=== PATIENT | female | born 1940 | race Caucasian/White ===

== ENCOUNTER 2018-01-30 19:20 | Inpatient (IN) | payer MEDICARE, OTHER ==
[2018-01-30] MEDS ORDERED: SODIUM CHLORIDE 0.9% 1,000 ML IV SCH (20:00)
--- NOTE | 2018-01-30 20:02 | ED ---
General Adult HPI - General Chief complaint: Urogenital Stated complaint: weakness Time Seen by Provider: 01/30/18 19:26 Source: patient, family, EMS, RN notes reviewed, old records reviewed Mode of arrival: EMS Limitations: no limitations - History of Present Illness Initial comments: 78-year-old female presenting as transfer from outside hospital. Patient was evaluated for generalized weakness. She has history of chronic kidney disease. She was transferred for nephrology evaluation. She was found to have UTI, patient has history of recurrent UTIs and is complaining of dysuria. No fever or chills. No chest pain at the time my evaluation. No cough or fever. Patient had left upper extremity graft placed about 3 years ago however this is nonfunctioning and was never used. Patient has never received hemodialysis. Denies abdominal pain nausea vomiting. - Related Data Home Medications Medication Instructions Recorded Confirmed Cholecalciferol [Vitamin D3] 5,000 unit PO DAILY@1200 08/14/14 08/14/14 Clopidogrel [Plavix] 75 mg PO DAILY 08/14/14 08/14/14 Insulin Aspart [NovoLOG 0 unit SQ [facility] 08/14/14 08/14/14 (formulary)] Insulin Detemir [Levemir Flextouch] 16 units SQ HS 08/14/14 08/14/14 Isosorbide Mononitrate ER [Imdur] 30 mg PO DAILY 08/14/14 08/14/14 Pravastatin Sodium [Pravachol] 40 mg PO HS 08/14/14 08/14/14 Previous Rx's Medication Instructions Recorded ALPRAZolam [Xanax] 0.25 mg PO TID #30 tab 08/21/14 Aspirin 81 mg PO DAILY #1 chewable 08/21/14 Carvedilol [Coreg] 6.25 mg PO AC-BID #1 tab 08/21/14 Omeprazole [PriLOSEC] 20 mg PO BID #1 capsule. 08/21/14 amLODIPine [Norvasc] 10 mg PO DAILY #1 tab 08/21/14 Allergies Allergy/AdvReac Type Severity Reaction Status Date / Time Penicillins Allergy Severe Swelling Verified 01/30/18 19:27 Sulfa (Sulfonamide Allergy Severe Swelling Verified 01/30/18 19:27 Antibiotics) diphenhydramine HCl Allergy Itching & Verified 01/30/18 19:27 [From Benadryl] Swelling lisinopril Allergy Itching Verified 01/30/18 19:27 Review of Systems ROS Statement: Those systems with pertinent positive or pertinent negative responses have been documented in the HPI. ROS Other: All systems not noted in ROS Statement are negative. Past Medical History Past Medical History: Coronary Artery Disease (CAD), Diabetes Mellitus, Hearing Disorder / Deafness, Hyperlipidemia, Hypertension, Osteoarthritis (OA) History of Any Multi-Drug Resistant Organisms: None Reported Past Surgical History: Back Surgery, Bowel Resection, Cholecystectomy, Heart Catheterization With Stent, Hysterectomy Past Anesthesia/Blood Transfusion Reactions: No Reported Reaction Date of Last Stent Placement:: 2012 Past Psychological History: Anxiety Smoking Status: Never smoker Past Alcohol Use History: None Reported Past Drug Use History: None Reported - Past Family History Mother Family Medical History: CVA/TIA Additional Family Medical History / Comment(s): mom had hx of htn and from stroke General Exam Limitations: no limitations General appearance: alert, in no apparent distress Head exam: Present: atraumatic, normocephalic Eye exam: Present: normal appearance, PERRL, other (Right eye ptosis) ENT exam: Present: normal exam Neck exam: Present: normal inspection. Absent: tenderness, meningismus Respiratory exam: Present: normal lung sounds bilaterally. Absent: respiratory distress, wheezes, rales Cardiovascular Exam: Present: regular rate, normal rhythm GI/Abdominal exam: Present: soft. Absent: distended, tenderness Extremities exam: Present: normal inspection. Absent: pedal edema, calf tenderness Back exam: Present: normal inspection, full ROM Neurological exam: Present: alert, oriented X3, CN II-XII intact. Absent: motor sensory deficit Psychiatric exam: Present: normal affect, normal mood Skin exam: Present: warm, dry, intact. Absent: cyanosis, diaphoretic Course Vital Signs 01/30/18 19:24 Temperature 98.7 F Pulse Rate 92 Respiratory 20 Rate Blood Pressure 179/77 O2 Sat by Pulse 96 Oximetry EKG Findings - EKG Comments: EKG Findings:: EKG: Normal sinus rhythm, left axis deviation, LVH no ST segment elevation, rate of 86, ME interval 206, QRS duration 108, QTC 473 Medical Decision Making - Medical Decision Making 78 yo female with generalized weakness, worsening kidney function and UTI. Patient transferred for further evaluation and treatment of along with nephrology consultation. Laboratory studies reviewed, patient had normal white blood cell count 7.6, hemoglobin 8.7 which appear stable for this patient. Sodium 137, potassium 4.2. BUN is 106 creatinine 4.9. Troponin and lactic acid are negative. Urinalysis did show signs consistent with UTI. Patient received ceftriaxone prior to transfer, she will be continued on this medication. Chest x-ray shows cardiomegaly with no significant pulmonary edema. Repeat laboratory studies will be obtained in the morning. Case discussed with Dr. Albarran, he will accept admission. Nephrology placed on consult. Disposition Clinical Impression: Chronic kidney disease, UTI (urinary tract infection) Disposition: ADMITTED IP TO THIS HOSP Condition: Stable Is patient prescribed a controlled substance at d/c from ED?: No Referrals: Jameson Winchester MD [Primary Care Provider] - 1-2 days Time of Disposition: 20:04 Decision to Admit Reason: Admit from EC Decision Date: 01/30/18 Decision Time: 20:05
[2018-01-30] MEDS: cefTRIAXone IN SWFI 1,000 MG/10 ML SYRINGE IVP SCH (20:20)
[2018-01-30] MEDS ORDERED: NALOXONE 0.4 MG/ML 1 ML VIAL IV PRN (20:50)
[2018-01-30] MEDS ORDERED: INSULIN ASPART 100 UNIT/ML 1 ML 10 ML VIAL SQ SCH (21:00)
[2018-01-30 22:28] LABS: Glucose,Whole Blood 204 mg/dL (75-99)
[2018-01-30] MEDS: SODIUM BICARBONATE TAB 650 MG TAB PO SCH (22:41)
[2018-01-30] MEDS: amLODIPine 10 MG TAB PO SCH (22:42)
[2018-01-30] MEDS: ALPRAZolam 0.5 MG TAB PO SCH (22:42)
[2018-01-30] MEDS: PRAVASTATIN SODIUM 40 MG TAB PO SCH (22:43)
[2018-01-30] MEDS: hydrALAZINE HCL 50 MG TAB PO SCH (22:43)
[2018-01-30] MEDS: DARBEPOETIN ALFA 100MCG/0.5ML SYRINGE SQ SCH (23:16)
[2018-01-31 07:51] LABS: Glucose,Whole Blood 136 mg/dL (75-99)
[2018-01-31] MEDS: INSULIN ASPART 100 UNIT/ML 1 ML 10 ML VIAL SQ SCH ×4 (07:52→22:08)
[2018-01-31] MEDS: CALCIUM ACETATE 667 MG CAP PO SCH ×3 (07:52→17:24)
[2018-01-31] MEDS: PANTOPRAZOLE 40 MG TABLET PO SCH (07:53)
[2018-01-31] MEDS: ALPRAZolam 0.5 MG TAB PO SCH ×2 (07:53→22:08)
[2018-01-31] MEDS: amLODIPine 10 MG TAB PO SCH ×2 (07:53→22:06)
[2018-01-31] MEDS: hydrALAZINE HCL 50 MG TAB PO SCH ×3 (07:53→22:06)
[2018-01-31] MEDS: MAGNESIUM OXIDE 400 MG TAB PO SCH (07:54)
[2018-01-31] MEDS: NON-FORMULARY DRUG (Linaclotide [Linzess] 145 MCG) PO SCH (07:55)
[2018-01-31] MEDS: SODIUM BICARBONATE TAB 650 MG TAB PO SCH ×2 (07:55→22:06)
[2018-01-31 09:05] LABS: Anisocytosis Moderate; Basophils % (A) 1 %; Eosinophils # (A) 0.2 k/uL (0-0.7); Eosinophils % (A) 3 %; HCT 27.4 % (34.0-46.0); HGB 8.1 gm/dL (11.4-16.0); Hypochromasia Marked; Lymphocytes # (A) 0.7 k/uL (1.0-4.8); Lymphocytes % (A) 14 %; MCH 26.3 pg (25.0-35.0); MCHC 29.5 g/dL (31.0-37.0); MCV 89.4 fL (80.0-100.0); Monocytes # (A) 0.4 k/uL (0-1.0); Monocytes % (A) 9 %; Neutrophils # (A) 3.4 k/uL (1.3-7.7); Neutrophils % (A) 72 %; Platelet Count 259 k/uL (150-450); Poikilocytosis Slight; RBC 3.06 m/uL (3.80-5.40); RDW 21.4 % (11.5-15.5); WBC 4.8 k/uL (3.8-10.6)
[2018-01-31 09:32] LABS: Albumin 3.1 g/dL (3.5-5.0); Calcium 8.3 mg/dL (8.4-10.2); Phosphorus 5.7 mg/dL (2.5-4.5); Potassium 4.1 mmol/L (3.5-5.1); Total Bilirubin 0.4 mg/dL (0.2-1.3); Total Protein 6.1 g/dL (6.3-8.2)
[2018-01-31] MEDS: METOLAZONE 5 MG TAB PO SCH (10:15)
[2018-01-31] MEDS: ISOSORBIDE MONONITRATE ER 60 MG TAB.ER.24H PO SCH (10:15)
[2018-01-31] MEDS: METOPROLOL SUCCINATE (ER) 25 MG TAB.ER.24H PO SCH (10:15)
[2018-01-31] MEDS: ASPIRIN 81 MG PO SCH (10:16)
[2018-01-31 12:05] LABS: Glucose,Whole Blood 153 mg/dL (75-99)
--- NOTE | 2018-01-31 12:16 | CONS ---
CONSULTATION REASON FOR CONSULT: Renal failure. HISTORY OF PRESENT ILLNESS: Patient is a 78-year-old female with history of sepsis, diabetes, chronic kidney disease, NKF stage IV-V, who was being followed by home demonstration agent in [place]; however, patient was going to switch nephrology to our service and was scheduled to see us in the office today. She ended up at [facility] and was then transferred to [facility]. Patient presented to the hospital with increased weakness. She has underlying history of recurrent urinary tract infection. She was found to have a UTI and is currently maintained on antibiotics. Her creatinine was above 5 at [facility]. It is now down to 4.8. I did review her previous labs that were sent to our office and it looks like her creatinine in September of 2017 has been about 3.5-4. Her baseline creatinine has been about 3.5-4. We have a creatinine of 4.7 during her office visit in earlier part of November. Patient does have an AV graft; however, this is clotted and she does not have a functioning access. It appears that the patient has been talked to regarding renal replacement therapy and she had been reluctant. She has had nephrotic range proteinuria upon review of her records. PAST MEDICAL HISTORY: CKD stage V, type 2 diabetes, coronary artery disease, recurrent urinary tract infection, history of nephrolithiasis and urological intervention previously, history of left hydronephrosis previously, history of GI bleed, CHF, ejection fraction not known at this time, CKD mineral bone disorder. PAST SURGICAL HISTORY: Coronary stent placement, AV graft placement left arm which is now clotted, history of back surgery, bowel resection, cholecystectomy, hysterectomy. SOCIAL HISTORY: Negative for smoking, drug abuse or alcohol abuse. MEDICATIONS: Medications at home prior to admission included vitamin D3, Plavix, insulin, Imdur, Pravachol, Xanax, aspirin, Coreg, Prilosec, Norvasc. ALLERGIES: Include PENICILLIN, which causes severe swelling, SULFA causes swelling, BENADRYL causes itching and swelling, LISINOPRIL causes itching. REVIEW OF SYSTEMS: As per HPI. All others negative. Patient denies any nausea, vomiting or diarrhea. She did admit to decreased oral intake. She admitted for increased weakness. No history of chest pain, shortness of breath, fever of cough. PHYSICAL EXAMINATION: Patient is currently comfortable, awake, alert, oriented x3. She is not in any acute distress. Blood pressure is 117/40, heart rate 60 per minute, she is afebrile. Examination of the heart, S1, S2. Examination of the lungs, bilateral breath sounds are heard. Abdomen is soft, nontender. Exam of the lower extremities shows no evidence of edema. [employer] exam is grossly intact. LABS: Show sodium 140, potassium 4.1, serum creatinine of 4.8, BUN 96, hemoglobin 8.1 g/dL, phosphorus was 5.7. ASSESSMENT: 1. Chronic kidney disease stage V with baseline creatinine about 4-4.5 mg/dL. Patient does have an access in her left arm, but it is clotted. She will need further vascular evaluation. Apparently patient has been talked to about starting renal replacement therapy, but she had been reluctant. I have just met her today and I will continue with the IV fluids for now. Patient has no gross uremic symptoms for urgent initiation of dialysis at this time. We will continue to evaluate her renal function during this admission. 2. Anemia of chronic disease, rule out iron-deficiency. 3. 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 Patient was on PhosLo at home which we will continue. 4. Congestive heart failure, ejection fraction not known. 5. Hypertension. Blood pressure was high, currently it is on the lower side. Will continue to monitor for now and possibly decrease medications if needed. 6. Metabolic acidosis. Maintained on sodium bicarb. 7. Type 2 diabetes. PLAN: Resume phosphate binders. Continue current antihypertensive medications. Check iron studies. Continue with Aranesp as well. Continue IV fluids and repeat labs in a.m. I will also check an ultrasound of the kidneys. The UA was positive for urinary tract infection. Will follow up on the urine culture. No need for urgent initiation of dialysis based on evaluation today, we will re-evaluate tomorrow. Thank you for this consultation. Will continue to follow the patient during her hospital stay. MMODL / IJN: [id number] /
--- NOTE | 2018-01-31 15:12 | US ---
EXAMINATION TYPE: US kidneys/renal and bladder DATE OF EXAM: 01/31/2018 COMPARISON: US 08/16/2014, CT 08/18/2014 CLINICAL HISTORY: kidney disease, elevated BUN/creat. EXAM MEASUREMENTS: Right Kidney: 10.4 x 5.5 x 4.2 cm Left Kidney: 11.7 x 5.6 x 5.6 cm Post Void Residual Volume: Patient incontinent of urine mL Right Kidney: No hydronephrosis or masses seen Left Kidney: No hydronephrosis or masses seen Bladder: wnl, not distended.Patient incontinent of urine Bilateral Jets seen: Yes Normal Post Void Residual: Unable to do. There is no evidence for hydronephrosis at this point in time. No nephrolithiasis is seen. No chel s are identified. The urinary bladder is anechoic. Bilateral ureteral jets are seen. Cortical medullary differentiation is maintained. No evident ascites. IMPRESSION: Renal sizes as described.
[2018-01-31 16:08] LABS: Iron Saturation 21.69 (12.00-45.00)
[2018-01-31 16:50] LABS: Glucose,Whole Blood 205 mg/dL (75-99)
[2018-01-31 17:16] LABS: Hemoglobin A1C 5.4 % (4.0-6.0)
[2018-01-31] MEDS: SODIUM CHLORIDE 0.9% 1,000 ML IV SCH (17:24)
[2018-01-31] MEDS ORDERED: MAGNESIUM HYDROXIDE 2,400 MG/10 ML CUP PO PRN (20:31)
[2018-01-31] MEDS ORDERED: ONDANSETRON 4 MG/2 ML VIAL IVP PRN (20:31)
[2018-01-31] MEDS ORDERED: LACTULOSE 20 GM/30 ML CUP PO PRN (20:31)
--- NOTE | 2018-01-31 21:07 | HP ---
HISTORY AND PHYSICAL DATE OF ADMISSION: 01/30/2018 DATE OF SERVICE: 01/31/2018 PRESENTING COMPLAINT: Weak, tired. HISTORY OF PRESENTING COMPLAINT: This is a very pleasant 78-year-old patient who follows with Dr. Winchester. Chronic stable medical conditions include coronary artery disease with stent, diabetes mellitus, type 2, hard of hearing, hyperlipidemia, hypertension, osteoarthritis and chronic kidney disease. Patient's creatinine normally runs around 3.5 to 4. The patient was following with a accelerator operator up in [place], was now due to see the local nephrology group here. Patient presented to [facility] feeling weak, tired and rundown and was found to have a creatinine that had increased. The patient was also having for the last 2 days increasing pelvic discomfort and urinary frequency and dysuria, tired, rundown. Patient was transferred here. The patient was started on IV fluids and IV antibiotics in the form of ceftriaxone. Patient's two sons are present at the bedside. No nausea or vomiting. Patient's appetite is okay. Patient does have an access that seems to have clotted off. REVIEW OF SYSTEMS: CONSTITUTIONAL: Tired. HEENT: Decreased hearing. RESPIRATORY: None. CARDIOVASCULAR: None. GASTROINTESTINAL: None. GENITOURINARY: As above. MUSCULOSKELETAL: Arthritic pain in joints. DERMATOLOGICAL: None. HEMATOLOGICAL: None. LYMPHATICS: None. PSYCHIATRY: Slightly forgetful. NEUROLOGICAL: Uses a walker. PAST MEDICAL HISTORY: 1. Coronary artery disease with stent. 2. Diabetes mellitus, type 2. 3. Hard of hearing. 4. Hyperlipidemia. 5. Hypertension. 6. Chronic kidney disease. Creatinine 3.5 to 4 at baseline. PAST SURGICAL HISTORY: 1. Back surgery. 2. Bowel resection. 3. Cholecystectomy. 4. Cardiac cath with stent. 5. Hysterectomy. 6. Left arm dialysis access 2017 that apparently has clotted off. SOCIAL HISTORY: No smoking. No alcohol. Lives with her son Emir. Uses a walker. FAMILY HISTORY: Mother of a stroke. HOME MEDICATIONS: 1. Sodium bicarb 650 mg b.i.d. 2. Hydralazine 50 mg p.o. t.i.d. 3. Norvasc 10 mg p.o. b.i.d. 4. Pravachol 40 mg at bedtime. 5. Potassium 20 mEq p.o. b.i.d. 6. Protonix 40 mg p.o. daily. 7. Lopressor 50 mg p.o. t.i.d. 8. Toprol XL 25 mg p.o. daily. 9. Zaroxolyn 5 mg p.o. daily. 10.Linzess 145 mcg p.o. daily. 11.Imdur ER 60 mg p.o. daily. 12.NovoLog before meals t.i.d. 13.Aranesp 100 mcg q.7 days. 14.PhosLo 2 tablets p.o. t.i.d. 15.Bumex 4 mg p.o. b.i.d. 16.Aspirin 81 mg p.o. daily. 17.Xanax 0.5 p.o. q.i.d. 18.Magnesium 500 mg p.o. daily. ALLERGIES: 1. PENICILLIN. 2. SULFA. 3. BENADRYL. 4. LISINOPRIL. PHYSICAL EXAMINATION: Temperature 98.7, pulse 92, respiration 20, blood pressure 179/77, pulse ox 96% on room air, present on admission. GENERAL APPEARANCE: Average build. Lying in bed, tired-appearing. EYES: Pupils equal. Conjunctivae pale. HEENT: External appearance of nose and ears normal. Oral cavity normal. NECK: JVD not raised. Mass not palpable. RESPIRATORY: Effort normal. LUNGS: Fair air entry. CARDIOVASCULAR: First and second sounds normal. No edema. ABDOMEN: Soft, non-tender. Liver and spleen not palpable. LYMPHATICS: No lymph node palpable in neck, axillae or groin. PSYCHIATRY: Alert and oriented x3. Mood and affect normal. MUSCULOSKELETAL: Evidence of osteoarthritis, especially in the hands and knees. INVESTIGATIONS: White count 4.8, hemoglobin 8.1, platelets 259, potassium 4.1, BUN 96, creatinine 4.87, phosphorus 5.7, albumin 3.1. Patient's lab work from the other hospital did show UA to be positive. ASSESSMENT: 1. Acute renal failure on chronic kidney disease. Normally baseline creatinine was running at 3.5 to 4, which is chronic kidney disease, stage V. Patient does not need emergent hemodialysis. Nephrology was consulted. IV fluids have been started for the same. 2. Metabolic acidosis from renal failure. Patient's bicarb is 19. 3. Normocytic anemia, likely from underlying chronic kidney disease. 4. Possibly mineral bone disease secondary to chronic kidney disease. Phosphorus is 5.7. 5. Hypoalbuminemia, likely from chronic kidney disease. 6. Chronic hard of hearing. 7. Coronary artery disease with prior history of stent. 8. Hyperlipidemia. 9. Essential hypertension. 10.Primary osteoarthritis. PLAN: The patient has been put on IV fluids, IV ceftriaxone. UA culture is pending. Home medications are resumed. Nephrology was consulted. We will also consult Vascular Surgery to look at the patient's access that will be required in the near future. MMODL / IJN: [id number] /
[2018-01-31 21:10] LABS: Glucose,Whole Blood 127 mg/dL (75-99)
[2018-01-31] MEDS: cefTRIAXone IN SWFI 1,000 MG/10 ML SYRINGE IVP SCH (22:05)
[2018-01-31] MEDS: PRAVASTATIN SODIUM 40 MG TAB PO SCH (22:06)
[2018-02-01 06:37] LABS: Appearance,Urine Turbid (Clear); Bacteria,Urine Rare /hpf; Bilirubin,Urine Negative (Negative); Blood,Urine Moderate (Negative); Color,Urine Yellow; Glucose,Urine (UA) 2+ (Negative); Ketones,Urine Negative (Negative); Leukocyte Esterase,Urine Large (Negative); Nitrite,Urine Negative (Negative); Protein,Urine 3+ (Negative); RBC,Urine 34 /hpf (0-5); Specific Gravity,Urine 1.014 (1.001-1.035); Squamous Epithelial Cell,Urine 8 /hpf (0-4); Urobilinogen,Urine <2.0 mg/dL (<2.0); WBC,Urine >182 /hpf (0-5)
[2018-02-01] MEDS: SODIUM CHLORIDE 0.9% 1,000 ML IV SCH ×2 (06:48→16:56)
[2018-02-01 07:19] LABS: Glucose,Whole Blood 164 mg/dL (75-99)
[2018-02-01] MEDS: METOLAZONE 5 MG TAB PO SCH (07:36)
[2018-02-01] MEDS: NON-FORMULARY DRUG (Linaclotide [Linzess] 145 MCG) PO SCH (07:36)
[2018-02-01] MEDS: CALCIUM ACETATE 667 MG CAP PO SCH ×3 (07:36→17:43)
[2018-02-01] MEDS: MAGNESIUM OXIDE 400 MG TAB PO SCH (07:36)
[2018-02-01] MEDS: INSULIN ASPART 100 UNIT/ML 1 ML 10 ML VIAL SQ SCH ×4 (07:37→22:19)
[2018-02-01] MEDS: hydrALAZINE HCL 50 MG TAB PO SCH ×3 (07:37→22:19)
[2018-02-01] MEDS: ISOSORBIDE MONONITRATE ER 60 MG TAB.ER.24H PO SCH (07:37)
[2018-02-01] MEDS: ALPRAZolam 0.5 MG TAB PO SCH ×2 (07:37→20:06)
[2018-02-01] MEDS: amLODIPine 10 MG TAB PO SCH ×2 (07:37→20:06)
[2018-02-01] MEDS: ASPIRIN 81 MG PO SCH (07:37)
[2018-02-01] MEDS: METOPROLOL SUCCINATE (ER) 25 MG TAB.ER.24H PO SCH (07:37)
[2018-02-01] MEDS: SODIUM BICARBONATE TAB 650 MG TAB PO SCH ×2 (07:37→20:06)
[2018-02-01] MEDS: PANTOPRAZOLE 40 MG TABLET PO SCH (07:37)
--- NOTE | 2018-02-01 07:39 | XR ---
EXAMINATION TYPE: XR chest 1V DATE OF EXAM: 02/01/2018 COMPARISON: Prior chest x-ray 08/20/2014 and prior chest x-ray 01/30/2018 HISTORY: Congestive heart failure TECHNIQUE: Single frontal view of the chest is obtained. FINDINGS: Heart is enlarged. No evident pneumothorax or pleural effusion. There is improvement in th e interstitium. Patchy basilar density persists. Central vascularity mildly prominent as on prior. IMPRESSION: Improvement in patient's volume status, aeration compared to prior exam of July 2014. Persistent cardiomegaly. Follow-up PA and lateral chest x-ray suggested.
--- NOTE | 2018-02-01 10:17 | CONS ---
CONSULTATION This is a 78-year-old, pleasant female. She has been admitted to [facility] with history of patient has discomfort of pain in pelvic area and history of frequency and dysuria. She feels very tired. The patient was seen by Nephrology. BUN creatinine is 3.5 to 4. The patient had a left upper arm [place]-Kavon graft placed in the past which has been occluded. The patient was seen by Nephrology. I was consulted. Patient needs a dialysis catheter or a fistula. PAST HISTORY: Past history includes: 1. Coronary artery disease. 2. Diabetes. 3. Hyperlipidemia. 4. Hypertension. 5. Chronic kidney disease. SURGICAL HISTORY: Patient had back surgery, bowel resection, cholecystectomy, left arm AV dialysis graft placed which has been occluded. SOCIAL HISTORY: Nonsmoker. PHYSICAL EXAMINATION: On examination, patient was seen in her room. Her vitals are stable. NECK: Supple. Trachea central. CHEST: Clear on auscultation. ABDOMEN: Soft. The patient has left upper arm [place]-Kavon graft, which has been occluded. The femoral pulses are present. PLAN: The patient has history of chronic failure, not on dialysis. If the patient needs any surgical intervention for catheter placement or fistula creation, we will arrange. MMODL / IJN: [id number] /
[2018-02-01 10:58] LABS: Albumin 2.9 g/dL (3.5-5.0); Calcium 8.2 mg/dL (8.4-10.2); Potassium 4.6 mmol/L (3.5-5.1); Total Bilirubin 0.3 mg/dL (0.2-1.3); Total Protein 5.9 g/dL (6.3-8.2)
[2018-02-01 12:50] LABS: Glucose,Whole Blood 183 mg/dL (75-99)
[2018-02-01] MEDS: ACETAMINOPHEN TAB 325 MG TAB PO PRN (14:13)
--- NOTE | 2018-02-01 14:35 | PN ---
PROGRESS NOTE Patient is seen for followup for chronic kidney disease. She is currently maintained on IV fluids. Renal function has not improved much. Serum creatinine is still at 4.89. Patient's BUN remains significantly elevated. Her albumin is as low as 2.9. She should be started on dialysis. I did review her previous labs as outpatient and her creatinine has been about 4.5 for the past 6 months or so. Currently, patient is being treated for UTI. She is complaining of significant burning and discomfort. Appetite is fair. No chest pains or shortness of breath. PHYSICAL EXAMINATION: Blood pressure was 177/67, heart rate 66 per minute. Patient is afebrile. Examination of the heart S1, S2. Examination of the lungs bilateral breath sounds are heard. Abdomen is soft, nontender. Examination of lower extremities shows no evidence of edema. CLINIC CLERK exam is grossly intact. LABS: Show sodium of 138, potassium 4.6, BUN 92, serum creatinine 4.89. Urine culture is currently pending. ASSESSMENT AND PLAN: 1. Chronic kidney disease NKF stage 5 with significantly elevated BUN and creatinine and hypoalbuminemia. It is recommended for the patient to start dialysis. I have discussed with her different options including PD. She will be starting at the [facility] unit. I have advised her that we will need to start with dialysis this admission and patient is currently agreeable. 2. Metabolic acidosis, non gap secondary to renal failure, maintained on sodium bicarb. 3. Urinary tract infection. Urine culture is pending. Patient is maintained on antibiotics. 4. Anemia of chronic disease. No active bleeding noted at this time. PLAN: Continue with Aranesp. Continue empiric antibiotics. Follow up on urine cultures. Continue current antihypertensive regimen and proceed with vascular is surgery consult and dialysis catheter placement. I will continue with the IV fluids and I will also increase his sodium bicarb to 650 mg b.i.d. MMODL / IJN: [id number] /
[2018-02-01 17:23] LABS: Glucose,Whole Blood 212 mg/dL (75-99)
[2018-02-01] MEDS: cefTRIAXone IN SWFI 1,000 MG/10 ML SYRINGE IVP SCH (20:06)
[2018-02-01] MEDS: PRAVASTATIN SODIUM 40 MG TAB PO SCH (20:06)
[2018-02-01 20:47] LABS: Glucose,Whole Blood 155 mg/dL (75-99)
[2018-02-01] MEDS ORDERED: FLUCONAZOLE 150 MG TAB PO STA (22:57)
[2018-02-02] MEDS: PHENAZOPYRIDINE 100 MG TAB PO SCH ×4 (00:59→21:32)
[2018-02-02] MEDS: ACETAMINOPHEN TAB 325 MG TAB PO PRN ×2 (01:03→14:57)
--- NOTE | 2018-02-02 05:29 | PN ---
PROGRESS NOTE DATE OF SERVICE: 02/01/2018 PRESENTING COMPLAINT: Tired, dysuria. INTERVAL HISTORY: The patient presented with worsening renal functions. Complaining of significant dysuria. The aide informed me there is some redness from the vaginal area and patient is getting topical antifungals. REVIEW OF SYSTEMS: Review of systems done for constitutional, cardiovascular, GI, pulmonary; relevant findings as above. CURRENT MEDICATIONS: Current medications are reviewed that include IV ceftriaxone. PHYSICAL EXAMINATION: On examination, temperature 98.8, pulse 62, respiratory 18, blood pressure 169/66, pulse ox 92% on room air. GENERAL APPEARANCE: Lying in bed, awake. EYES: Pupils equal. Conjunctivae normal. HENT: External appearance of nose and ears normal. Oral cavity normal. NECK: JVD not raised. Mass not palpable. RESPIRATORY: Effort . LUNGS: Fair air entry. CARDIOVASCULAR: First and second sounds normal. No edema. ABDOMEN: Soft, nontender. Liver and spleen not palpable. Some suprapubic tenderness. PSYCHIATRY: Alert and oriented x3. Mood and affect normal. EXTREMITIES: Left upper extremity occluded [place]-Kavon graft. INVESTIGATIONS: Bicarb 16, BUN 92, creatinine 4.89. ASSESSMENT: 1. Acute renal failure on chronic kidney disease worsening extending. 2. Baseline chronic kidney disease with a creatinine of 3.5 to 4. 3. Severe metabolic acidosis from renal failure. 4. Normocytic anemia from underlying chronic kidney disease. 5. Mineral bone disease secondary to Chronic kidney disease. 6. Hypoalbuminemia likely from chronic kidney disease. 7. Chronic hard of hearing. 8. Coronary artery disease, prior history of stent. 9. Hyperlipidemia. 10.Essential hypertension. 11.Primary osteoarthritis. 12.Severe dysuria secondary to urinary tract infection, vaginal infection is still probable. PLAN: Will give patient p.o. Diflucan 150 mg. I will also add Pyridium for a short course. The patient's [place]-Kavon graft in the left arm is occluded. The patient may require hemodialysis in the near future. Will let Dr. Galeas address this with the patient. MMAYANNAL / IJN: [id number] /
[2018-02-02] MEDS: SODIUM CHLORIDE 0.9% 1,000 ML IV SCH ×2 (05:45→19:46)
[2018-02-02 07:34] LABS: Glucose,Whole Blood 125 mg/dL (75-99)
[2018-02-02] MEDS: INSULIN ASPART 100 UNIT/ML 1 ML 10 ML VIAL SQ SCH ×4 (08:00→21:31)
[2018-02-02] MEDS: hydrALAZINE HCL 50 MG TAB PO SCH ×3 (08:02→21:32)
[2018-02-02] MEDS: ISOSORBIDE MONONITRATE ER 60 MG TAB.ER.24H PO SCH (08:02)
[2018-02-02] MEDS: MAGNESIUM OXIDE 400 MG TAB PO SCH (08:02)
[2018-02-02] MEDS: METOPROLOL SUCCINATE (ER) 25 MG TAB.ER.24H PO SCH (08:02)
[2018-02-02] MEDS: ALPRAZolam 0.5 MG TAB PO SCH ×2 (08:03→21:31)
[2018-02-02] MEDS: PANTOPRAZOLE 40 MG TABLET PO SCH (08:03)
[2018-02-02] MEDS: METOLAZONE 5 MG TAB PO SCH (08:03)
[2018-02-02] MEDS: SODIUM BICARBONATE TAB 650 MG TAB PO SCH ×2 (08:03→21:32)
[2018-02-02] MEDS: NON-FORMULARY DRUG (Linaclotide [Linzess] 145 MCG) PO SCH (08:03)
[2018-02-02] MEDS: ASPIRIN 81 MG PO SCH (08:03)
[2018-02-02] MEDS: CALCIUM ACETATE 667 MG CAP PO SCH ×3 (08:03→17:39)
[2018-02-02] MEDS: amLODIPine 10 MG TAB PO SCH ×2 (08:03→21:31)
[2018-02-02 09:38] LABS: Calcium 8.4 mg/dL (8.4-10.2); Potassium 4.3 mmol/L (3.5-5.1)
[2018-02-02 11:39] LABS: Glucose,Whole Blood 206 mg/dL (75-99)
[2018-02-02 11:47] LABS: INR 1.1 (<1.2); Prothrombin Time 10.3 sec (9.0-12.0)
[2018-02-02] MEDS ORDERED: LIDOCAINE 1% INJ 10MG/ML (20 ML MDV) ONE (15:27)
[2018-02-02] MEDS ORDERED: IV FLUID CONTINUATION 1,000 ML IV ONE (15:47)
[2018-02-02] MEDS ORDERED: CLINDAMYCIN 600 MG in DEXTROSE 5% IN WATER 50 ML IVPB STA ×2 (15:52)
[2018-02-02] MEDS ORDERED: LIDOCAINE 1% INJ 10MG/ML (20 ML MDV) SQ ONE ×2 (15:56)
[2018-02-02] MEDS ORDERED: HEPARIN SODIUM 1,000 UN/ML (10ML VL) ONE (16:09)
--- NOTE | 2018-02-02 16:56 | IR ---
Fluoroscopy HISTORY: Central venous catheter placement 0.7 minutes fluoroscopy time supplied to the referring clinician. 75 intraoperative C-arm images doc ument the procedure. See dictated report from vascular surgery.
--- NOTE | 2018-02-02 16:57 | PCN ---
PROCEDURE NOTE PREOP DIAGNOSIS: Acute on chronic renal failure. PROCEDURE PERFORMED: Ultrasound-guided 23 cm dialysis catheter placed right internal jugular approach. DESCRIPTION OF PROCEDURE: The patient was brought to the shellfish processing laborer. Right side of the neck and chest was prepped and draped in usual sterile manner. 1% lidocaine was infiltrated into the chest and neck area. Ultrasound-guided micropuncture into the right jugular vein. Micropuncture guidewire was passed and 4 Arabic dilator on the top of the guidewire. After that, we passed a regular guidewire which was parked in the inferior vena cava under fluoroscopy control. Then a tunnel was created. Through the tunnel, we brought 23 cm dialysis catheter. Dilator was advanced on the top of the guidewire. Sheath was run, advanced on top of the guidewire. Through the sheath, we introduced the dialysis catheter. Tip of the catheter in the superior vena cava and atrial junction. Flushed with heparin saline and hep-locked and secured with 3-0 nylon. Dressing applied. Patient tolerated the procedure well. MMODL / IJN: [id number] /
--- NOTE | 2018-02-02 16:57 | XR ---
EXAMINATION TYPE: XR chest 1V portable DATE OF EXAM: 02/02/2018 COMPARISON: Prior chest 02/01/2018 HISTORY: Dialysis catheter insertion TECHNIQUE: Single frontal view of the chest is obtained. FINDINGS: Right jugular central venous catheter is placed in the interval, distal tip is in the righ t atrium. There is no evident pneumothorax or pleural effusion. No other significant interval change. IMPRESSION: No evident complication status post central venous catheter placement.
[2018-02-02 17:34] LABS: Glucose,Whole Blood 151 mg/dL (75-99)
--- NOTE | 2018-02-02 19:12 | PN ---
PROGRESS NOTE The patient is seen for followup for chronic kidney disease. I have discussed renal replacement therapy with the patient and she is agreeable to start dialysis. Her creatinine remains elevated. She is maintained on IV fluids. This morning, one of her sons is present at bedside. I have discussed with them and they are agreeable to catheter placement and initiation of dialysis. The patient is still complaining of significant itching and burning in the perineal area. EXAMINATION: Today blood pressure is 132/62, heart rate 58 per minute. She is afebrile. HEART: S1, S2. LUNGS: Bilateral breath sounds are heard. Abdomen is soft, nontender. Lower extremities show trace edema bilaterally. 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 Patient is moving all 4 extremities. LABS SHOW: Serum creatinine of 4.7, sodium 138, potassium 4.3, CO2 is 16. ASSESSMENT: 1. Chronic kidney disease secondary to diabetic nephropathy, [employer] stage 5 with significantly low albumin and significantly elevated BUN. The patient will need to start renal replacement therapy. This was discussed with her. I have also advised her that she can consider switching to peritoneal dialysis down the road. 2. Metabolic acidosis secondary to renal failure, maintained on sodium bicarb. 3. Urinary tract infection. Urine culture showing no evidence of growth. The patient has been on antibiotics. 4. Anemia of chronic disease maintained on Aranesp. 5. Hypertension, currently controlled. 6. Chronic kidney disease mineral bone disorder maintained on PhosLo. PLAN: Decrease IV fluids and proceed with catheter placement and initiation of dialysis this admission. She will need to be placed at the [place] unit. We will plan for 1st treatment of hemodialysis tomorrow. MMODL / IJN: [id number] /
[2018-02-02] MEDS: cefTRIAXone IN SWFI 1,000 MG/10 ML SYRINGE IVP SCH (19:46)
[2018-02-02 20:38] LABS: Glucose,Whole Blood 212 mg/dL (75-99)
--- NOTE | 2018-02-02 21:12 | PN ---
PROGRESS NOTE DATE OF SERVICE: 02/02/18 PRESENTING COMPLAINT: Tired. INTERVAL HISTORY: Patient presented with worsening renal function, UTI, dysuria. Pyridium was placed yesterday. The patient's two sons are present. Patient is due for a dialysis catheter placement this afternoon. Will have her first dialysis tomorrow. REVIEW OF SYSTEMS: Done for constitutional, cardiovascular, GI, pulmonary; relevant findings as above. CURRENT MEDICATIONS: Reviewed that include IV ceftriaxone. PHYSICAL EXAMINATION: Temperature 101.2, pulse 67, respirations 16, blood pressure 146/70, pulse ox 93% on room air. GENERAL APPEARANCE: Lying in bed, awake. EYES: Pupils equal. Conjunctivae normal. HEENT: External appearance of nose and ears normal. Oral cavity normal. NECK: JVD not raised. Mass not palpable. RESPIRATORY: Effort normal. Lungs, fair entry. CARDIOVASCULAR: First and second sounds, no edema. ABDOMEN: Soft, nontender. Liver and spleen not palpable. PSYCHIATRY: Alert and oriented x3. Mood and affect normal. EXTREMITIES: Left upper extremity occluded Ceresco-Kavon graft. INVESTIGATIONS: BUN 81, creatinine 4.72. ASSESSMENT: 1. Acute renal failure on chronic kidney disease, worsening now. The patient will be requiring hemodialysis. 2. Severe metabolic acidosis from renal failure. 3. Normocytic anemia from underlying chronic kidney disease. 4. 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 5. Hypoalbuminemia from chronic kidney disease. 6. Chronic hard of hearing. 7. Coronary artery disease with prior history of stent. 8. Hyperlipidemia. 9. Essential hypertension. 10.Primary osteoarthritis. 11.Severe dysuria due to urinary tract infection. PLAN: The patient did spike a fever again in spite of Ceftriaxone. We will send off a set of blood cultures. Will get an ID opinion. Care was discussed with the sons at the bedside. Will do blood cultures and repeat a UA and culture. MMODL / IJN: [id number] /
[2018-02-02] MEDS: PRAVASTATIN SODIUM 40 MG TAB PO SCH (21:32)
[2018-02-03] MEDS: ACETAMINOPHEN TAB 325 MG TAB PO PRN ×2 (06:40→18:40)
[2018-02-03 07:02] LABS: Appearance,Urine Turbid (Clear); Bacteria,Urine Occasional /hpf; Bilirubin,Urine Negative (Negative); Blood,Urine Moderate (Negative); Color,Urine Dark Yellow; Glucose,Urine (UA) 2+ (Negative); Ketones,Urine Negative (Negative); Leukocyte Esterase,Urine Large (Negative); Nitrite,Urine Negative (Negative); Protein,Urine 3+ (Negative); RBC,Urine 27 /hpf (0-5); Specific Gravity,Urine 1.015 (1.001-1.035); Urobilinogen,Urine <2.0 mg/dL (<2.0); WBC,Urine >182 /hpf (0-5)
[2018-02-03 07:42] LABS: Glucose,Whole Blood 166 mg/dL (75-99)
[2018-02-03] MEDS: CALCIUM ACETATE 667 MG CAP PO SCH ×3 (07:52→17:36)
[2018-02-03] MEDS: INSULIN ASPART 100 UNIT/ML 1 ML 10 ML VIAL SQ SCH ×4 (07:52→21:19)
[2018-02-03] MEDS: ALPRAZolam 0.5 MG TAB PO SCH ×2 (07:52→21:17)
[2018-02-03] MEDS: PHENAZOPYRIDINE 100 MG TAB PO SCH ×2 (07:52→15:51)
[2018-02-03] MEDS: SODIUM BICARBONATE TAB 650 MG TAB PO SCH ×2 (07:53→21:18)
[2018-02-03] MEDS: ASPIRIN 81 MG PO SCH (07:53)
[2018-02-03] MEDS: PANTOPRAZOLE 40 MG TABLET PO SCH (07:53)
[2018-02-03] MEDS: MAGNESIUM OXIDE 400 MG TAB PO SCH (07:54)
[2018-02-03] MEDS: NON-FORMULARY DRUG (Linaclotide [Linzess] 145 MCG) PO SCH (07:54)
[2018-02-03] MEDS: METOLAZONE 5 MG TAB PO SCH (11:06)
[2018-02-03] MEDS: amLODIPine 10 MG TAB PO SCH ×2 (11:07→21:17)
[2018-02-03] MEDS: hydrALAZINE HCL 50 MG TAB PO SCH ×3 (11:07→21:18)
[2018-02-03] MEDS: ISOSORBIDE MONONITRATE ER 60 MG TAB.ER.24H PO SCH (11:08)
[2018-02-03] MEDS: METOPROLOL SUCCINATE (ER) 25 MG TAB.ER.24H PO SCH (11:09)
[2018-02-03 11:55] LABS: Glucose,Whole Blood 141 mg/dL (75-99)
[2018-02-03 16:59] LABS: Glucose,Whole Blood 146 mg/dL (75-99)
[2018-02-03 17:08] LABS: Hepatitis A Antibody IgM Non-Reactive (Non-Reactive); Hepatitis B Core IgM Non-Reactive (Non-Reactive)
--- NOTE | 2018-02-03 18:22 | PN ---
PROGRESS NOTE Patient is seen for followup for chronic kidney disease, stage V. She had her dialysis catheter placed yesterday. We will dialyze her today as her first treatment. Patient will be dialyzed again tomorrow. She needs to be set up as outpatient at the [facility]. She was admitted with a urinary tract infection and is currently maintained on antibiotics. On examination, blood pressure was elevated at 174/73. Temperature 100 degrees Fahrenheit early this morning. EXAMINATION OF THE HEART: S1, S2. EXAMINATION OF LUNGS: Bilateral breath sounds are heard. Decreased breath sounds at the bases. ABDOMEN: Soft, non-tender. Examination of lower extremities shows trace edema bilaterally. 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 Patient is moving all 4 extremities. Labs are not available from today. ASSESSMENT: 1. Chronic kidney disease, stage V. Patient needs to start dialysis. She had her PermCath placed yesterday. We will dialyze her today and then again tomorrow. She needs to be set up as outpatient at the [facility] on a Tuesday, Tuesday, Tuesday schedule. 2. Urinary tract infection. Patient is still having fevers. She is maintained on antibiotics in the form of Rocephin. Cultures have not grown anything yet. Clinically symptoms are improved. 3. Metabolic acidosis secondary to renal failure, maintained on sodium bicarb. Expect further improvement with initiation of dialysis. 4. Anemia of chronic disease, maintained on Aranesp. 5. Hypertension. It had been better controlled. Blood pressure is elevated currently. We can increase medications if needed. Expect improvement with dialysis as well. Patient is maintained on Lopressor and hydralazine. We can start COLT inhibitors once the dialysis is initiated. PLAN: Hemodialysis today as well as in a.m. Add COLT inhibitors if blood pressure remains elevated. May need ID consult if patient remains febrile. We need outpatient placement at the [facility] on a Tuesday, Tuesday, Tuesday schedule. MMODL / IJN: [id number] /
[2018-02-03] MEDS: HYDROcodone/APAP 5-325MG 1 EACH TAB PO PRN (19:47)
[2018-02-03] MEDS: cefTRIAXone IN SWFI 1,000 MG/10 ML SYRINGE IVP SCH (19:48)
[2018-02-03] MEDS: LACTULOSE 20 GM/30 ML CUP PO SCH (19:49)
[2018-02-03] MEDS: SODIUM CHLORIDE 0.9% 1,000 ML IV SCH (19:52)
[2018-02-03 21:02] LABS: Glucose,Whole Blood 200 mg/dL (75-99)
[2018-02-03] MEDS: PRAVASTATIN SODIUM 40 MG TAB PO SCH (21:18)
--- NOTE | 2018-02-03 21:37 | PN ---
PROGRESS NOTE DATE OF SERVICE: 02/03/2018 PRESENTING COMPLAINT: Tired. INTERVAL HISTORY: This is a patient who presented with worsening renal function, also UTI, dysuria. Today the patient is having dialysis, feels a bit tired, did tolerate some diet. REVIEW OF SYSTEMS: Done for constitutional, cardiovascular, GI, pulmonary; relevant findings as above. CURRENT MEDICATIONS: Include IV ceftriaxone. EXAMINATION: T-max 101.2, now down to 100, pulse 56, respirations 18, blood pressure 154/65, pulse ox 91% on nasal cannula. GENERAL APPEARANCE: Lying in bed, tired-appearing. EYES: Pupils are equal. Conjunctivae pale. HEENT: External nose and ears normal. Oral cavity normal. NECK: JVD not raised. Mass not palpable. RESPIRATORY: Effort normal. LUNGS: Decreased breath sounds. CARDIOVASCULAR: First and second sounds normal. No edema. ABDOMEN: Soft, nontender. Liver and spleen not palpable. PSYCHIATRY: Awake, answering questions. INVESTIGATIONS: UA positive. Urine culture pending. Chest x-ray does not show any infiltrates. ASSESSMENT: 1. Acute renal failure on chronic kidney disease, advanced to end-stage kidney disease, started on hemodialysis. 2. Severe metabolic acidosis from renal failure. 3. Normocytic anemia from chronic kidney disease. 4. 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 5. Hypoalbuminemia from chronic kidney disease. 6. Hard of hearing. 7. Coronary artery disease with prior history of stent. 8. Hyperlipidemia. 9. Essential hypertension. 10.Primary osteoarthritis. 11.Dysuria from urinary tract infection. 12.Pelvic area fungal infection. PLAN: Continue current medication and treatment plan. The patient will be kept on IV ceftriaxone for right now. Dr. Orta from [place] was consulted because of the fever. Await his input. MMODL / IJN: [id number] /
--- NOTE | 2018-02-03 23:04 | P.CONS ---
History of Present Illness - Reason for Consult Consult date: 02/03/18 - Chief Complaint dysuria - History of Present Illness 78-year-old female who is known to nephrology for chronic kidney disease is having a decline of her status. She does have access in the left arm but it is nonfunctional. She recently has had onset of symptoms of significant dysuria with frequency. She has been treated in the outpatient setting with oral antibiotic therapy and Pyridium but without improvement. With her worsening of her status and her increasing creatinine she presented to our facility with a creatinine greater than 5. Also evidence of urinary tract infection and sepsis and consequently infectious diseases consultation was requested. The patient relates that she is miserable because of her dysuria. The pain is quite severe. She also complains that she's had significant constipation and if she were at home she would take further laxatives. She did have fever but this is improved she's not having chills or rigors. She's had some progressive weakness. As noted she has had decline of her renal status and has started hemodialysis today by the new PermCath that was placed. Review of Systems 78-year-old female who appears to be quite miserable, and chronically ill HEENT:Denies headache or acute visual change. Denies sinus or mouth discomforts. Denies neck stiffness or pain. Denies significant oral cavity pain. Denies difficulty on swallowing. Lungs: Denies significant shortness of breath, cough, sputum production, or hemoptysis. Cardiovascular: Denies significant shortness of breath, chest pain, chest wall pain, orthopnea, dyspnea on exertion, syncope Gastrointestinal: Appetite is poor but without nausea or emesis She has severe constipation but no hematemesis melena or hematochezia Musculoskeletal: denies significant myalgias or arthralgias. No new joint swelling. Denies new back pain. Skin: Complains of some mild irritation to her buttocks but no open lesions are seen Neuro: Denies headache or visual change. Denies any new onset weakness or difficulty with ambulation. Denies falls or seizures. Psychiatric:Denies anxiety or depression. Endocrine: Progressive fatigue weight has been stable Past Medical History Past Medical History: Coronary Artery Disease (CAD), Diabetes Mellitus, Hearing Disorder / Deafness, Hyperlipidemia, Hypertension, Osteoarthritis (OA), Renal Disease History of Any Multi-Drug Resistant Organisms: None Reported Past Surgical History: Back Surgery, Bowel Resection, Cholecystectomy, Heart Catheterization With Stent, Hysterectomy Additional Past Surgical History / Comment(s): Left arm Arbuckle-Kavon graft placed in 2017 - occluded/non-functioning Past Anesthesia/Blood Transfusion Reactions: No Reported Reaction Date of Last Stent Placement:: 2012 Past Psychological History: Anxiety Additional Psychological History / Comment(s): lives independently but has many family members who help. She has 3 adult sons. No experience. No travel history. No animal exposures Smoking Status: Never smoker Past Alcohol Use History: None Reported Past Drug Use History: None Reported - Past Family History Mother Family Medical History: CVA/TIA Additional Family Medical History / Comment(s): Mom had history of HTN and from stroke. Medications and Allergies Home Medications and Allergies Comment(s): Current Medications Acetaminophen (Tylenol Tab) 650 mg PO Q6HR PRN PRN Reason: Mild Pain or Fever > 100.5 Last Admin: 02/03/18 18:40 Dose: 650 mg Hydrocodone Bitart/Acetaminophen (Harlan 5-325) 1 each PO Q4HR PRN PRN Reason: MODERATE Pain Last Admin: 02/03/18 19:47 Dose: 1 each Alprazolam (Xanax) 0.5 mg PO BID [facility] Last Admin: 02/03/18 21:17 Dose: 0.5 mg Amlodipine Besylate (Norvasc) 10 mg PO BID [facility] Last Admin: 02/03/18 21:17 Dose: 10 mg Aspirin (Aspirin) 81 mg PO DAILY [facility] Last Admin: 02/03/18 07:53 Dose: 81 mg Calcium Acetate (Phoslo) 667 mg PO AC-TID [facility] Last Admin: 02/03/18 17:36 Dose: 667 mg Ceftriaxone Sodium (Rocephin) 1,000 mg IVP Q24H [facility] Last Admin: 02/03/18 19:48 Dose: 1,000 mg Darbepoetin Nacho (Aranesp) 100 mcg SQ Q7D [facility] Last Admin: 01/30/18 23:16 Dose: Not Given Hydralazine HCl (Apresoline) 50 mg PO TID [facility] Last Admin: 02/03/18 21:18 Dose: 50 mg Sodium Chloride (Saline 0.9%) 1,000 mls @ 40 mls/hr IV .Q24H [facility] Last Admin: 02/03/18 19:52 Dose: 40 mls/hr Insulin Aspart (Novolog) 0 unit SQ ACHS [facility]; Protocol Last Admin: 02/03/18 21:19 Dose: 2 unit Isosorbide Mononitrate (Imdur) 60 mg PO DAILY [facility] Last Admin: 02/03/18 11:08 Dose: Not Given Lactulose (Cephulac) 30 gm PO DAILY [facility] Last Admin: 02/03/18 19:49 Dose: 30 gm Magnesium Hydroxide (Milk Of Magnesia) 2,400 mg PO DAILY PRN PRN Reason: Constipation Last Admin: 02/03/18 15:51 Dose: 2,400 mg Magnesium Oxide (Mag-Ox) 400 mg PO DAILY [facility] Last Admin: 02/03/18 07:54 Dose: 400 mg Metolazone (Zaroxolyn) 5 mg PO DAILY [facility] Last Admin: 02/03/18 11:06 Dose: Not Given Metoprolol Succinate (Toprol Xl) 25 mg PO DAILY [facility] Last Admin: 02/03/18 11:09 Dose: 25 mg Naloxone HCl (Narcan) 0.2 mg IV Q2M PRN PRN Reason: Opioid Reversal Non-Formulary Medication (Linaclotide [Linzess]) 145 mcg PO DAILY [facility] Last Admin: 02/03/18 07:54 Dose: Not Given Ondansetron HCl (Zofran) 4 mg IVP Q8HR PRN PRN Reason: Nausea And Vomiting Pantoprazole Sodium (Protonix) 40 mg PO AC-BRKFST [facility] Last Admin: 02/03/18 07:53 Dose: 40 mg Pravastatin Sodium (Pravachol) 40 mg PO [facility] Last Admin: 02/03/18 21:18 Dose: 40 mg Sodium Bicarbonate (Sodium Bicarbonate Tab) 650 mg PO BID [facility] Last Admin: 02/03/18 21:18 Dose: 650 mg Home Medications Medication Instructions Recorded Confirmed Type Insulin Aspart [NovoLOG See Protocol SQ AC-TID 08/14/14 01/31/18 History (formulary)] Pravastatin Sodium [Pravachol] 40 mg PO HS 08/14/14 01/31/18 History Aspirin 81 mg PO DAILY #1 chewable 08/21/14 01/31/18 Rx ALPRAZolam [Xanax] 0.5 mg PO QID 01/30/18 01/31/18 History Bumetanide 4 mg PO BID 01/30/18 01/31/18 History Calcium Acetate [Phoslo] 1,334 mg PO TID 01/30/18 01/31/18 History Darbepoetin Nacho [Aranesp] 100 mcg IJ Q7D 01/30/18 01/31/18 History Isosorbide Mononitrate ER [Imdur] 60 mg PO DAILY 01/30/18 01/31/18 History Linaclotide [Linzess] 145 mcg PO DAILY 01/30/18 01/31/18 History Magnesium Gluconate [Magonate] 500 mg PO DAILY 01/30/18 01/30/18 History Metolazone [Zaroxolyn] 5 mg PO DAILY 01/30/18 01/31/18 History Metoprolol Succinate [Toprol XL] 25 mg PO DAILY 01/30/18 01/31/18 History Pantoprazole Sodium [Protonix] 40 mg PO DAILY 01/30/18 01/31/18 History Potassium Chloride ER [K-Dur 20] 20 meq PO BID 01/30/18 01/31/18 History Sodium Bicarbonate 650 mg PO BID 01/30/18 01/31/18 History amLODIPine [Norvasc] 10 mg PO BID 01/30/18 01/31/18 History hydrALAZINE HCL [Apresoline] 50 mg PO TID 01/30/18 01/31/18 History Metoprolol Tartrate [Lopressor] 50 mg PO TID 01/31/18 01/31/18 History Allergies Allergy/AdvReac Type Severity Reaction Status Date / Time Penicillins Allergy Severe Swelling Verified 01/30/18 20:07 Sulfa (Sulfonamide Allergy Severe Swelling Verified 01/30/18 20:07 Antibiotics) diphenhydramine HCl Allergy Itching & Verified 01/30/18 20:07 [From Benadryl] Swelling lisinopril Allergy Itching Verified 01/30/18 20:07 Physical Exam Vitals: Vital Signs Temp Pulse Resp BP Pulse Ox 02/03/18 21:16 63 168/69 02/03/18 19:37 95 02/03/18 14:50 98.4 F 74 18 174/73 95 02/03/18 07:53 100.0 F H 66 18 94 L 02/03/18 06:19 100.2 F H 67 17 154/65 91 L 02/02/18 23:00 99.4 F 64 17 162/62 94 L Intake and Output 02/03/18 02/03/18 02/03/18 06:59 14:59 22:59 Intake Total 200 Balance 200 Intake: Oral 200 Other: Voiding Method Diaper Diaper Incontinent Incontinent # Voids 2 3 # Bowel Movements 0 Weight 91 kg Elderly 78-year-old woman who appears chronically ill complaining of pain with urination HEENT: Anicteric conjunctiva are pink and moist nasal mucosa grossly intact without significant lesions, there is no thrush. Neck: The neck is supple without significant lymphadenopathy or thyromegaly. Lungs: Good bilateral air entry without significant crackles or wheezing. There is no significant bronchial sounds. There is no egophony or dullness. Heart: Regular rate and rhythm with an audible S1-S2, no S3 no S4. There is no significant murmur click or rub, PMI was nondisplaced. Abdomen: Positive bowel sounds soft and nontender without palpable masses or organomegaly. Does have some mild right flank tenderness. There was no guarding or rebound. Extremities: The upper extremities have excellent pulses they are symmetric, no significant petechiae or telangiectasia. No splinter hemorrhages were noted. The lower extremities have minimal bilateral lower extremity edema. The peripheral pulses were 2+ and symmetric. Neuro: Awake alert oriented to person place and time. There are no acute new gross focal sensory motor deficits. Results CBC & Chem 7: 01/31/18 08:38 02/02/18 09:03 Labs: Abnormal Lab Results - Last 24 Hours (Table) 02/03/18 02/03/18 02/03/18 Range/Units 06:30 07:06 11:54 POC Glucose (mg/dL) 166 H 141 H (75-99) mg/dL Urine Appearance Turbid H (Clear) Urine Protein 3+ H (Negative) Urine Glucose (UA) 2+ H (Negative) Urine Blood Moderate H (Negative) Ur Leukocyte Esterase Large H (Negative) Urine RBC 27 H (0-5) /hpf Urine WBC >182 H (0-5) /hpf Urine WBC Clumps Many H (None) /hpf Urine Bacteria Occasional H (None) /hpf 02/03/18 02/03/18 Range/Units 16:56 20:49 POC Glucose (mg/dL) 146 H 200 H (75-99) mg/dL Urine Appearance (Clear) Urine Protein (Negative) Urine Glucose (UA) (Negative) Urine Blood (Negative) Ur Leukocyte Esterase (Negative) Urine RBC (0-5) /hpf Urine WBC (0-5) /hpf Urine WBC Clumps (None) /hpf Urine Bacteria (None) /hpf Microbiology - Last 24 Hours (Table) 02/03/18 06:30 Urine Culture - Preliminary Urine,Catheterized Laboratory Results WBC 4.8 k/uL (3.8-10.6) 01/31/18 08:38 RBC 3.06 m/uL (3.80-5.40) L 01/31/18 08:38 Hgb 8.1 gm/dL (11.4-16.0) L 01/31/18 08:38 Hct 27.4 % (34.0-46.0) L 01/31/18 08:38 MCV 89.4 fL (80.0-100.0) 01/31/18 08:38 MCH 26.3 pg (25.0-35.0) 01/31/18 08:38 MCHC 29.5 g/dL (31.0-37.0) L 01/31/18 08:38 RDW 21.4 % (11.5-15.5) H 01/31/18 08:38 Plt Count 259 k/uL (150-450) 01/31/18 08:38 Neutrophils % 72 % 01/31/18 08:38 Lymphocytes % 14 % 01/31/18 08:38 Monocytes % 9 % 01/31/18 08:38 Eosinophils % 3 % 01/31/18 08:38 Basophils % 1 % 01/31/18 08:38 Neutrophils # 3.4 k/uL (1.3-7.7) 01/31/18 08:38 Lymphocytes # 0.7 k/uL (1.0-4.8) L 01/31/18 08:38 Monocytes # 0.4 k/uL (0-1.0) 01/31/18 08:38 Eosinophils # 0.2 k/uL (0-0.7) 01/31/18 08:38 Basophils # 0.0 k/uL (0-0.2) 01/31/18 08:38 Hypochromasia Marked 01/31/18 08:38 Poikilocytosis Slight 01/31/18 08:38 Anisocytosis Moderate 01/31/18 08:38 PT 10.3 sec (9.0-12.0) 02/02/18 11:12 INR 1.1 (<1.2) 02/02/18 11:12 Sodium 138 mmol/L (137-145) 02/02/18 09:03 Potassium 4.3 mmol/L (3.5-5.1) 02/02/18 09:03 Chloride 109 mmol/L (98-107) H 02/02/18 09:03 Carbon Dioxide 16 mmol/L (22-30) L 02/02/18 09:03 Anion Gap 13 mmol/L 02/02/18 09:03 BUN 81 mg/dL (7-17) H* 02/02/18 09:03 Creatinine 4.72 mg/dL (0.52-1.04) H 02/02/18 09:03 Est GFR (CKD-EPI)AfAm 10 (>60 ml/min/1.73 sqM) 02/02/18 09:03 Est GFR (CKD-EPI)NonAf 8 (>60 ml/min/1.73 sqM) 02/02/18 09:03 Glucose 172 mg/dL (74-99) H 02/02/18 09:03 POC Glucose (mg/dL) 200 mg/dL (75-99) H 02/03/18 20:49 POC Glu Surveillance Camera Technician ID Ying Cedeno 02/03/18 20:[address] Glu mg/dL 108 01/31/18 08:38 Hemoglobin A1c 5.4 % (4.0-6.0) 01/31/18 08:38 Calcium 8.4 mg/dL (8.4-10.2) 02/02/18 09:03 Phosphorus 5.7 mg/dL (2.5-4.5) H 01/31/18 08:38 Magnesium 2.0 mg/dL (1.6-2.3) 01/31/18 08:38 Iron 64 ug/dL (50-170) 01/31/18 08:38 TIBC 295 ug/dL (228-460) 01/31/18 08:38 Iron Saturation 21.69 (12.00-45.00) 01/31/18 08:38 Total Bilirubin 0.3 mg/dL (0.2-1.3) 02/01/18 10:20 AST 18 U/L (14-36) 02/01/18 10:20 ALT 27 U/L (9-52) 02/01/18 10:20 Alkaline Phosphatase 79 U/L (38-126) 02/01/18 10:20 Total Protein 5.9 g/dL (6.3-8.2) L 02/01/18 10:20 Albumin 2.9 g/dL (3.5-5.0) L 02/01/18 10:20 Urine Color Dark Yellow 02/03/18 06:30 Urine Appearance Turbid (Clear) H 02/03/18 06:30 Urine pH 6.0 (5.0-8.0) 02/03/18 06:30 Ur Specific [place] 1.015 (1.001-1.035) 02/03/18 06:30 Urine Protein 3+ (Negative) H 02/03/18 06:30 Urine Glucose (UA) 2+ (Negative) H 02/03/18 06:30 Urine Ketones Negative (Negative) 02/03/18 06:30 Urine Blood Moderate (Negative) H 02/03/18 06:30 Urine Nitrite Negative (Negative) 02/03/18 06:30 Urine Bilirubin Negative (Negative) 02/03/18 06:30 Urine Urobilinogen <2.0 mg/dL (<2.0) 02/03/18 06:30 Ur Leukocyte Esterase Large (Negative) H 02/03/18 06:30 Urine RBC 27 /hpf (0-5) H 02/03/18 06:30 Urine WBC >182 /hpf (0-5) H 02/03/18 06:30 Urine WBC Clumps Many /hpf (None) H 02/03/18 06:30 Ur Squamous Epith Cells 8 /hpf (0-4) H 02/01/18 05:50 Urine Bacteria Occasional /hpf (None) H 02/03/18 06:30 Microbiology 02/03/18 06:30 Urine,Catheterized Urine Culture - Preliminary 02/01/18 05:50 Urine,Voided Urine Culture - Final Assessment and Plan (1) Chronic kidney disease Current Visit: Yes Status: Acute Code(s): N18.9 - CHRONIC KIDNEY DISEASE, UNSPECIFIED SNOMED Code(s): 765410447 (2) UTI (urinary tract infection) Narrative/Plan: 78-year-old female who has chronic kidney disease is now had progression of her renal disease to require dialysis at this time. She required placement of the PermCath for hemodialysis because the nonfunctional graft in the left forearm. Her first cycle of hemodialysis was short but she seemed to tolerate it well. She presented with increasing weakness and evidence of a urinary tract infection with significant dysuria. This continues to bother her greatly. Tylenol was not helpful. We'll dose of Harlan has been added an attempt to try to improve her significant discomfort. Antibiotic therapy with ceftriaxone is being utilized lower awaiting the final urine culture. The family inquired about peridium and we discussed that with her poor renal function this is not an option at this time. Hopefully with fluids, dialysis and some improved pain medications she will have some improvement of her status. Lactulose has been requested daily to help with her constipation. The urine culture is in process and will further help direct antibiotic therapy, blood cultures negative so far. Current Visit: Yes Status: Acute Code(s): N39.0 - URINARY TRACT INFECTION, SITE NOT SPECIFIED SNOMED Code(s): 96527087 (3) Dysuria Current Visit: Yes Status: Acute Code(s): R30.0 - DYSURIA SNOMED Code(s): 55895020
[2018-02-04] MEDS: ACETAMINOPHEN TAB 325 MG TAB PO PRN (04:33)
[2018-02-04] MEDS: HYDROcodone/APAP 5-325MG 1 EACH TAB PO PRN (04:34)
[2018-02-04 07:09] LABS: Glucose,Whole Blood 161 mg/dL (75-99)
[2018-02-04] MEDS: NON-FORMULARY DRUG (Linaclotide [Linzess] 145 MCG) PO SCH (07:38)
[2018-02-04] MEDS: amLODIPine 10 MG TAB PO SCH (07:39)
[2018-02-04] MEDS: METOPROLOL SUCCINATE (ER) 25 MG TAB.ER.24H PO SCH (07:39)
[2018-02-04] MEDS: MAGNESIUM OXIDE 400 MG TAB PO SCH (07:39)
[2018-02-04] MEDS: hydrALAZINE HCL 50 MG TAB PO SCH ×2 (07:39→15:06)
[2018-02-04] MEDS: CALCIUM ACETATE 667 MG CAP PO SCH ×3 (07:39→17:34)
[2018-02-04] MEDS: METOLAZONE 5 MG TAB PO SCH (07:39)
[2018-02-04] MEDS: ISOSORBIDE MONONITRATE ER 60 MG TAB.ER.24H PO SCH (07:39)
[2018-02-04] MEDS: PANTOPRAZOLE 40 MG TABLET PO SCH (07:39)
[2018-02-04] MEDS: LACTULOSE 20 GM/30 ML CUP PO SCH (07:39)
[2018-02-04] MEDS: SODIUM BICARBONATE TAB 650 MG TAB PO SCH ×2 (07:39→21:11)
[2018-02-04] MEDS: ALPRAZolam 0.5 MG TAB PO SCH ×2 (07:39→21:10)
[2018-02-04] MEDS: ASPIRIN 81 MG PO SCH (07:40)
[2018-02-04] MEDS: INSULIN ASPART 100 UNIT/ML 1 ML 10 ML VIAL SQ SCH ×4 (07:40→21:11)
[2018-02-04] MEDS: SODIUM FERRIC GLUCONAT-SUCROSE 125 MG in SODIUM CHLORIDE 0.9% 100 ML IVPB SCH (11:43)
[2018-02-04] MEDS: LOSARTAN 50 MG TAB PO SCH (11:43)
[2018-02-04 12:00] LABS: Glucose,Whole Blood 154 mg/dL (75-99)
--- NOTE | 2018-02-04 12:02 | P.PN ---
Subjective Patient is seen in follow-up for end-stage renal disease. She was started on hemodialysis this admission. Today will be her second treatment. Currently resting in bed. Denies chest pain or shortness of breath. Admits to burning with urination. No vomiting or diarrhea. Currently being treated for UTI. Vital signs are stable. General: The patient appeared well nourished and normally developed. HEENT: Head exam is unremarkable. Neck is without jugular venous distension. LUNGS: Lungs are clear to auscultation and percussion. Breath sounds decreased. HEART: Rate and Rhythm are regular. First and second heart sounds normal. No murmurs, rubs or gallops. ABDOMEN: Abdominal exam reveals normal bowel sounds. Non-tender and non- distended. No evidence of peritonitis. EXTREMITITES: No clubbing, cyanosis, or edema. Objective - Vital Signs Vital signs: Vital Signs Temp 99.1 F 02/04/18 07:05 Pulse 71 02/04/18 07:05 Resp 17 02/04/18 07:05 BP 156/81 02/04/18 07:05 Pulse Ox 92 L 02/04/18 07:05 Intake & Output 02/03/18 02/04/18 02/04/18 18:59 06:59 18:59 Intake Total 200 300 Balance 200 300 Weight 94 kg Intake: Oral 200 300 Other: Voiding Method Diaper Diaper Diaper Incontinent Incontinent Incontinent # Voids 3 2 # Bowel Movements 0 0 - Labs CBC & Chem 7: 01/31/18 08:38 02/02/18 09:03 Labs: Abnormal Lab Results - Last 24 Hours (Table) 02/03/18 02/03/18 02/04/18 Range/Units 16:56 20:49 06:55 POC Glucose (mg/dL) 146 H 200 H 161 H (75-99) mg/dL Microbiology - Last 24 Hours (Table) 02/02/18 20:41 Blood Culture - Preliminary Blood No Growth after 24 hours 02/03/18 06:30 Urine Culture - Preliminary Urine,Catheterized Assessment and Plan Plan: Assessment: 1. End-stage renal disease started on hemodialysis since admission. Second dialysis treatment today. 2. UTI maintained on antibiotics. 3. Metabolic acidosis secondary to chronic kidney disease maintained on oral sodium bicarbonate. Expect further improvement with dialysis. 4. Hypertension with chronic kidney disease. 5. Anemia of chronic kidney disease maintained on Aranesp. Mild iron deficiency noted. 6. Diabetes mellitus. Plan: Hemodialysis today. Ferrlecit 125 mg IV daily for 2 days. First dose today. Add losartan 50 mg once daily. Patient being set up for hemodialysis as outpatient in [place] unit.
[2018-02-04 17:14] LABS: Glucose,Whole Blood 227 mg/dL (75-99)
--- NOTE | 2018-02-04 17:47 | P.OBCN ---
History of Present Illness Consult date: 02/04/18 Requesting physician: Noah Albarran Reason for consult: other (Vaginal burning) Chief complaint: Vaginal burning History of present illness: This is a 78-year-old woman admitted with urinary tract infection and renal failure who complains of vaginal burning and incontinence. She reports she has a long-standing history of incontinence and currently with urination when the urine touches the skin of the vagina and going there is severe burning. She denies vaginal bleeding, itching, foul discharge, blood in the stool or urine. She has a remote history of hysterectomy but denies bladder surgery. She reports she does not have vaginal burning prior to her admission and diagnosis with urinary tract infection. Review of Systems Constitutional: Denies fever Cardiovascular: Denies chest pain, Denies shortness of breath Respiratory: Denies cough Gastrointestinal: Denies abdominal pain, Denies BRBPR, Denies change in bowel habits, Denies nausea, Denies vomiting Genitourinary: Reports dysuria, Reports mixed incontinence, Reports post void dribbling, Reports urgency, Denies abnormal vaginal bleeding, Denies flank pain , Denies hematuria, Denies prolapse symptoms, Denies vaginal discharge, Denies vaginal itching, Denies vaginal odor Menstruation: Reports post hysterectomy, Reports postmenopausal Neurological: Reports weakness Hematologic/Lymphatic: Denies easy bleeding Past Medical History Past Medical History: Coronary Artery Disease (CAD), Diabetes Mellitus, Hearing Disorder / Deafness, Hyperlipidemia, Hypertension, Osteoarthritis (OA), Renal Disease History of Any Multi-Drug Resistant Organisms: None Reported Past Surgical History: Back Surgery, Bowel Resection, Cholecystectomy, Heart Catheterization With Stent, Hysterectomy Additional Past Surgical History / Comment(s): Left arm [place] graft placed in 2017 - occluded/non-functioning Past Anesthesia/Blood Transfusion Reactions: No Reported Reaction Date of Last Stent Placement:: 2012 Past Psychological History: Anxiety Additional Psychological History / Comment(s): lives independently but has many family members who help. She has 3 adult sons. No experience. No travel history. No animal exposures Smoking Status: Never smoker Past Alcohol Use History: None Reported Past Drug Use History: None Reported - Past Family History Mother Family Medical History: CVA/TIA Additional Family Medical History / Comment(s): Mom had history of HTN and from stroke. Medications and Allergies Home Medications Medication Instructions Recorded Confirmed Type Insulin Aspart [NovoLOG See Protocol SQ AC-TID 08/14/14 01/31/18 History (formulary)] Pravastatin Sodium [Pravachol] 40 mg PO HS 08/14/14 01/31/18 History Aspirin 81 mg PO DAILY #1 chewable 08/21/14 01/31/18 Rx ALPRAZolam [Xanax] 0.5 mg PO QID 01/30/18 01/31/18 History Bumetanide 4 mg PO BID 01/30/18 01/31/18 History Calcium Acetate [Phoslo] 1,334 mg PO TID 01/30/18 01/31/18 History Darbepoetin Nacho [Aranesp] 100 mcg IJ Q7D 01/30/18 01/31/18 History Isosorbide Mononitrate ER [Imdur] 60 mg PO DAILY 01/30/18 01/31/18 History Linaclotide [Linzess] 145 mcg PO DAILY 01/30/18 01/31/18 History Magnesium Gluconate [Magonate] 500 mg PO DAILY 01/30/18 01/30/18 History Metolazone [Zaroxolyn] 5 mg PO DAILY 01/30/18 01/31/18 History Metoprolol Succinate [Toprol XL] 25 mg PO DAILY 01/30/18 01/31/18 History Pantoprazole Sodium [Protonix] 40 mg PO DAILY 01/30/18 01/31/18 History Potassium Chloride ER [K-Dur 20] 20 meq PO BID 01/30/18 01/31/18 History Sodium Bicarbonate 650 mg PO BID 01/30/18 01/31/18 History amLODIPine [Norvasc] 10 mg PO BID 01/30/18 01/31/18 History hydrALAZINE HCL [Apresoline] 50 mg PO TID 01/30/18 01/31/18 History Metoprolol Tartrate [Lopressor] 50 mg PO TID 01/31/18 01/31/18 History Allergies Allergy/AdvReac Type Severity Reaction Status Date / Time Penicillins Allergy Severe Swelling Verified 01/30/18 20:07 Sulfa (Sulfonamide Allergy Severe Swelling Verified 01/30/18 20:07 Antibiotics) diphenhydramine HCl Allergy Itching & Verified 01/30/18 20:07 [From Benadryl] Swelling lisinopril Allergy Itching Verified 01/30/18 20:07 Exam Vital Signs Temp Pulse Resp BP Pulse Ox 02/04/18 14:02 98.9 F 71 17 122/70 94 L 02/04/18 07:05 99.1 F 71 17 156/81 92 L 02/03/18 23:00 99.4 F 61 20 144/68 95 02/03/18 21:16 63 168/69 02/03/18 19:37 95 Intake and Output 02/04/18 02/04/18 02/04/18 06:59 14:59 22:59 Intake Total 100 Balance 100 Intake: Oral 100 Other: Voiding Method Diaper Diaper Incontinent Incontinent # Voids 2 # Bowel Movements 0 Weight 94 kg This is a pleasant elderly female who is somewhat hard of hearing. Targeted physical exam is performed. The abdomen is obese, soft and nontender. She has surgical scars consistent with her history. She has a moderately sized ventral hernia. There is no rashes or lesions under the skin folds of the breast pannus or groin. On examination of the external genitalia she has actively incontinent of clear urine. Vulva and vaginal tissue appeared atrophic with mild global erythema . There is no evidence of mass, ulceration, infection or excoriation. Perirectal area also appears normal other than mild erythema extending to the buttocks. This is not consistent with Amy. Of note her undergarment is saturated with urine. There are no palpable masses on digital examination in the vagina and the cervix is surgically absent. Results Result Diagrams: 01/31/18 08:38 02/02/18 09:03 Abnormal Lab Results - Last 24 Hours (Table) 02/03/18 02/04/18 02/04/18 Range/Units 20:49 06:55 11:58 POC Glucose (mg/dL) 200 H 161 H 154 H (75-99) mg/dL 02/04/18 Range/Units 17:10 POC Glucose (mg/dL) 227 H (75-99) mg/dL Microbiology - Last 24 Hours (Table) 02/03/18 06:30 Urine Culture - Final Urine,Catheterized 02/02/18 20:41 Blood Culture - Preliminary Blood No Growth after 24 hours Assessment and Plan (1) Vulvar atrophy Narrative/Plan: This is a 78-year-old woman with multiple medical problems currently being treated for urinary tract infection and renal failure. She has a long-standing history of incontinence and is not on surprising that with ascitic infected urine that this is somewhat caustic to the delicate atrophic vaginal and perirectal tissue. There is no evidence of active candidal infection at this time however on antibiotic therapy for long-term prophylactic Diflucan on may be considered. Otherwise I would simply recommend diligent adrianna-care with frequent changing of her incontinence undergarments keep wet material away from the area. I also recommend liberal application of a barrier cream such as Vaseline to protect the skin and provide relief of her symptoms. I would not recommend a medicated vaginal treatment such as nystatin as this may create more irritation then relief. Current Visit: Yes Status: Acute Code(s): N90.5 - ATROPHY OF VULVA SNOMED Code(s): 613687210 (2) Incontinence of urine Current Visit: Yes Status: Acute Code(s): R32 - UNSPECIFIED URINARY INCONTINENCE SNOMED Code(s): 536314131 (3) Chronic kidney disease Current Visit: Yes Status: Acute Code(s): N18.9 - CHRONIC KIDNEY DISEASE, UNSPECIFIED SNOMED Code(s): 353037203 (4) Dysuria Current Visit: Yes Status: Acute Code(s): R30.0 - DYSURIA SNOMED Code(s): 16030798 (5) UTI (urinary tract infection) Current Visit: Yes Status: Acute Code(s): N39.0 - URINARY TRACT INFECTION, SITE NOT SPECIFIED SNOMED Code(s): 46747535
[2018-02-04] MEDS: cefTRIAXone IN SWFI 1,000 MG/10 ML SYRINGE IVP SCH (20:09)
--- NOTE | 2018-02-04 20:38 | PN ---
PROGRESS NOTE DATE OF SERVICE: 02/04/2018 PRESENT COMPLAINT: Tired. INTERVAL HISTORY: Patient presented with worsening renal failure, started on hemodialysis, also UTI with severe dysuria, was also given 1 dose of Diflucan. The patient spiked a fever for which the patient saw ID. A repeat urine culture on the antibiotic has been negative. I also consulted HISTORIAN RESEARCH ASSISTANT, Dr. Hernandez. Her consult is appreciated. Local perineal care to be continued. REVIEW OF SYSTEMS: Done for constitutional, cardiovascular, GI, pulmonary; relevant findings as above. CURRENT MEDICATIONS: Reviewed. IV ceftriaxone. EXAMINATION: Temperature 98.9, pulse 71, respirations 17, blood pressure 122/70, pulse ox 94% on room air. GENERAL APPEARANCE: Lying in bed, comfortable. EYES: Pupils equal. Conjunctivae pale. HEENT: External appearance of nose and ears normal. Oral cavity normal. NECK: JVD not raised. Mass not palpable. RESPIRATORY: Effort normal. LUNGS: Decreased breath sounds. CARDIOVASCULAR: First and second sounds normal. No edema. ABDOMEN: Soft, nontender. Liver and spleen not palpable. PSYCHIATRY: Alert and oriented x3. Mood and affect normal. INVESTIGATIONS: Potassium 4.3, chloride 109, bicarb 16, BUN 81, creatinine 4.72. Hepatitis screen is negative. ASSESSMENT: 1. Acute renal failure on chronic kidney disease, advanced to end-stage kidney disease. Patient on hemodialysis. 2. Severe metabolic acidosis from renal failure. 3. Normocytic anemia from chronic kidney disease. 4. 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 5. Hypoalbuminemia from chronic kidney disease. 6. Hard of hearing. 7. Coronary artery disease, prior history of stent. 8. Hyperlipidemia. 9. Essential hypertension. 10.Primary osteoarthritis. 11.Severe dysuria from urinary tract infection. The patient has been on ceftriaxone for day 5 now. The patient has been afebrile for the last 48 hours. Will continue for 2 more doses if there is no further fever or white count. The patient's son is at the bedside. hair worker looking at discharge planning. MMODL / IJN: [id number] /
[2018-02-04 20:41] LABS: Glucose,Whole Blood 213 mg/dL (75-99)
[2018-02-04] MEDS: PRAVASTATIN SODIUM 40 MG TAB PO SCH (21:10)
[2018-02-05] MEDS: hydrALAZINE HCL 50 MG TAB PO SCH ×4 (01:47→22:00)
[2018-02-05] MEDS: SODIUM CHLORIDE 0.9% 1,000 ML IV SCH (06:51)
[2018-02-05] MEDS: NON-FORMULARY DRUG (Linaclotide [Linzess] 145 MCG) PO SCH (06:52)
[2018-02-05 07:16] LABS: Glucose,Whole Blood 135 mg/dL (75-99)
[2018-02-05] MEDS: ACETAMINOPHEN TAB 325 MG TAB PO PRN ×2 (07:23→23:12)
[2018-02-05] MEDS: METOPROLOL SUCCINATE (ER) 25 MG TAB.ER.24H PO SCH (07:24)
[2018-02-05] MEDS: CALCIUM ACETATE 667 MG CAP PO SCH ×3 (07:24→17:36)
[2018-02-05] MEDS: ISOSORBIDE MONONITRATE ER 60 MG TAB.ER.24H PO SCH (07:24)
[2018-02-05] MEDS: LOSARTAN 50 MG TAB PO SCH (07:24)
[2018-02-05] MEDS: LACTULOSE 20 GM/30 ML CUP PO SCH (07:24)
[2018-02-05] MEDS: ALPRAZolam 0.5 MG TAB PO SCH ×2 (07:24→22:00)
[2018-02-05] MEDS: SODIUM BICARBONATE TAB 650 MG TAB PO SCH ×2 (07:24→22:00)
[2018-02-05] MEDS: MAGNESIUM OXIDE 400 MG TAB PO SCH (07:24)
[2018-02-05] MEDS: amLODIPine 10 MG TAB PO SCH (07:24)
[2018-02-05] MEDS: PANTOPRAZOLE 40 MG TABLET PO SCH (07:24)
[2018-02-05] MEDS: ASPIRIN 81 MG PO SCH (07:24)
[2018-02-05] MEDS: INSULIN ASPART 100 UNIT/ML 1 ML 10 ML VIAL SQ SCH ×4 (07:25→22:10)
[2018-02-05] MEDS: SODIUM FERRIC GLUCONAT-SUCROSE 125 MG in SODIUM CHLORIDE 0.9% 100 ML IVPB SCH (10:41)
[2018-02-05 11:43] LABS: Glucose,Whole Blood 165 mg/dL (75-99)
--- NOTE | 2018-02-05 11:47 | P.PN ---
Subjective Patient is seen in follow-up for end-stage renal disease. She was started on hemodialysis this admission. Currently resting in bed. Denies chest pain or shortness of breath. Admits to burning with urination. No vomiting or diarrhea. Currently being treated for UTI. Tolerated hemodialysis well yesterday with 1 L ultrafiltration. Vital signs are stable. General: The patient appeared well nourished and normally developed. HEENT: Head exam is unremarkable. Neck is without jugular venous distension. LUNGS: Lungs are clear to auscultation and percussion. Breath sounds decreased. HEART: Rate and Rhythm are regular. First and second heart sounds normal. No murmurs, rubs or gallops. ABDOMEN: Abdominal exam reveals normal bowel sounds. Non-tender and non- distended. No evidence of peritonitis. EXTREMITITES: No clubbing, cyanosis, or edema. Objective - Vital Signs Vital signs: Vital Signs Temp 98.6 F 02/05/18 06:00 Pulse 71 02/05/18 06:00 Resp 20 02/05/18 06:00 BP 138/67 02/05/18 06:00 Pulse Ox 92 L 02/05/18 06:00 Intake & Output 02/04/18 02/05/18 02/05/18 18:59 06:59 18:59 Intake Total 1070 Output Total 1 Balance 1069 Weight 93 kg Intake: Intake, IV Titration 400 Amount Sodium Chloride 0.9% 1, 400 000 ml @ 40 mls/hr IV . Q24H [facility] Rx#:[id number] Oral 670 Output: Urine/Stool Mix 1 Other: Voiding Method Diaper Diaper Diaper Incontinent Incontinent Incontinent # Voids 1 2 # Bowel Movements 0 1 - Labs CBC & Chem 7: 01/31/18 08:38 02/02/18 09:03 Labs: Abnormal Lab Results - Last 24 Hours (Table) 02/04/18 02/04/18 02/04/18 Range/Units 11:58 17:10 20:38 POC Glucose (mg/dL) 154 H 227 H 213 H (75-99) mg/dL 02/05/18 Range/Units 07:13 POC Glucose (mg/dL) 135 H (75-99) mg/dL Microbiology - Last 24 Hours (Table) 02/02/18 20:41 Blood Culture - Preliminary Blood No Growth after 48 hours 02/03/18 06:30 Urine Culture - Final Urine,Catheterized Assessment and Plan Plan: Assessment: 1. End-stage renal disease started on hemodialysis this admission. 2. UTI maintained on antibiotics. 3. Metabolic acidosis secondary to chronic kidney disease maintained on oral sodium bicarbonate. Expect further improvement with dialysis. 4. Hypertension with chronic kidney disease. Controlled. 5. Anemia of chronic kidney disease maintained on Aranesp. Mild iron deficiency noted. 6. Diabetes mellitus. Plan: Hemodialysis tomorrow. Ferrlecit 125 mg IV daily for 2 days. Second dose today. Maintain current antihypertensives. Patient being set up for hemodialysis as outpatient in [facility].
[2018-02-05 17:01] LABS: Glucose,Whole Blood 192 mg/dL (75-99)
[2018-02-05 20:47] LABS: Glucose,Whole Blood 202 mg/dL (75-99)
[2018-02-05] MEDS: PRAVASTATIN SODIUM 40 MG TAB PO SCH (22:00)
[2018-02-05] MEDS: cefTRIAXone IN SWFI 1,000 MG/10 ML SYRINGE IVP SCH (22:00)
[2018-02-06] MEDS: HYDROcodone/APAP 5-325MG 1 EACH TAB PO PRN (01:13)
[2018-02-06 07:30] LABS: Glucose,Whole Blood 187 mg/dL (75-99)
[2018-02-06] MEDS: NON-FORMULARY DRUG (Linaclotide [Linzess] 145 MCG) PO SCH (08:18)
[2018-02-06] MEDS: LACTULOSE 20 GM/30 ML CUP PO SCH (08:19)
[2018-02-06] MEDS: INSULIN ASPART 100 UNIT/ML 1 ML 10 ML VIAL SQ SCH ×4 (08:19→23:55)
[2018-02-06] MEDS: PANTOPRAZOLE 40 MG TABLET PO SCH (08:23)
[2018-02-06] MEDS: SODIUM BICARBONATE TAB 650 MG TAB PO SCH ×2 (08:23→23:55)
[2018-02-06] MEDS: ALPRAZolam 0.5 MG TAB PO SCH ×2 (08:23→23:54)
[2018-02-06] MEDS: LOSARTAN 50 MG TAB PO SCH (08:23)
[2018-02-06] MEDS: MAGNESIUM OXIDE 400 MG TAB PO SCH (08:23)
[2018-02-06] MEDS: amLODIPine 10 MG TAB PO SCH (08:23)
[2018-02-06] MEDS: hydrALAZINE HCL 50 MG TAB PO SCH ×3 (08:23→23:55)
[2018-02-06] MEDS: ISOSORBIDE MONONITRATE ER 60 MG TAB.ER.24H PO SCH (08:23)
[2018-02-06] MEDS: METOPROLOL SUCCINATE (ER) 25 MG TAB.ER.24H PO SCH (08:23)
[2018-02-06] MEDS: ASPIRIN 81 MG PO SCH (08:24)
[2018-02-06] MEDS: CALCIUM ACETATE 667 MG CAP PO SCH ×3 (08:24→17:21)
[2018-02-06] MEDS: SODIUM FERRIC GLUCONAT-SUCROSE 125 MG in SODIUM CHLORIDE 0.9% 100 ML IVPB SCH (09:43)
[2018-02-06 09:44] LABS: Calcium 8.1 mg/dL (8.4-10.2); Potassium 4.2 mmol/L (3.5-5.1)
[2018-02-06 10:10] LABS: Anisocytosis Moderate; Basophils % (A) 1 %; Eosinophils # (A) 0.2 k/uL (0-0.7); Eosinophils % (A) 5 %; HCT 25.5 % (34.0-46.0); HGB 7.4 gm/dL (11.4-16.0); Hypochromasia Marked; Lymphocytes % (A) 19 %; MCH 26.6 pg (25.0-35.0); MCV 91.8 fL (80.0-100.0); Mean Platelet Volume 7.9; Monocytes # (A) 0.6 k/uL (0-1.0); Monocytes % (A) 12 %; Neutrophils # (A) 3.1 k/uL (1.3-7.7); Neutrophils % (A) 61 %; Platelet Count 242 k/uL (150-450); RBC 2.78 m/uL (3.80-5.40); RDW 20.5 % (11.5-15.5); WBC 5.1 k/uL (3.8-10.6)
--- NOTE | 2018-02-06 10:56 | P.PN ---
Subjective Patient is seen in follow-up for end-stage renal disease. She was started on hemodialysis this admission. Currently resting in bed. Denies chest pain or shortness of breath. Admits to burning with urination. No vomiting or diarrhea. Currently being treated for UTI. Vital signs are stable. General: The patient appeared well nourished and normally developed. HEENT: Head exam is unremarkable. Neck is without jugular venous distension. LUNGS: Lungs are clear to auscultation and percussion. Breath sounds decreased. HEART: Rate and Rhythm are regular. First and second heart sounds normal. No murmurs, rubs or gallops. ABDOMEN: Abdominal exam reveals normal bowel sounds. Non-tender and non- distended. No evidence of peritonitis. EXTREMITITES: No clubbing, cyanosis, or edema. Objective - Vital Signs Vital signs: Vital Signs Temp 98.7 F 02/06/18 07:05 Pulse 67 02/06/18 07:05 Resp 17 02/06/18 07:05 BP 144/71 02/06/18 07:05 Pulse Ox 93 L 02/06/18 07:05 Intake & Output 02/05/18 02/06/18 02/06/18 18:59 06:59 18:59 Weight 93.5 kg Other: Voiding Method Diaper Diaper Diaper Incontinent Incontinent Incontinent # Voids 2 3 # Bowel Movements 1 - Labs CBC & Chem 7: 02/06/18 08:10 02/06/18 08:10 Labs: Abnormal Lab Results - Last 24 Hours (Table) 02/05/18 02/05/18 02/05/18 Range/Units 11:39 16:59 20:46 RBC (3.80-5.40) m/uL Hgb (11.4-16.0) gm/dL Hct (34.0-46.0) % MCHC (31.0-37.0) g/dL RDW (11.5-15.5) % Chloride (98-107) mmol/L BUN (7-17) mg/dL Creatinine (0.52-1.04) mg/dL Glucose (74-99) mg/dL POC Glucose (mg/dL) 165 H 192 H 202 H (75-99) mg/dL Calcium (8.4-10.2) mg/dL 02/06/18 02/06/1802/06/18 Range/Units 07:09 08:10 08:10 RBC 2.78 L (3.80-5.40) m/uL Hgb 7.4 L (11.4-16.0) gm/dL Hct 25.5 L (34.0-46.0) % MCHC 29.0 L (31.0-37.0) g/dL RDW 20.5 H (11.5-15.5) % Chloride 109 H (98-107) mmol/L BUN 33 H (7-17) mg/dL Creatinine 3.53 H (0.52-1.04) mg/dL Glucose 181 H (74-99) mg/dL POC Glucose (mg/dL) 187 H (75-99) mg/dL Calcium 8.1 L (8.4-10.2) mg/dL Microbiology - Last 24 Hours (Table) 02/02/18 20:41 Blood Culture - Preliminary Blood No Growth after 72 hours Assessment and Plan Plan: Assessment: 1. End-stage renal disease started on hemodialysis this admission. 2. UTI maintained on antibiotics. 3. Metabolic acidosis secondary to chronic kidney disease maintained on oral sodium bicarbonate. Expect further improvement with dialysis. 4. Hypertension with chronic kidney disease. Controlled. 5. Anemia of chronic kidney disease maintained on Aranesp. Mild iron deficiency noted. 6. Diabetes mellitus. Plan: Hemodialysis today. Ferrlecit 125 mg IV daily for 2 days. Third dose today. Maintain current antihypertensives. Patient being set up for hemodialysis as outpatient in [facility].
[2018-02-06] MEDS ORDERED: HEPARIN SODIUM,PORCINE 5,000 UNIT/ML 1 ML VIAL ONE (11:29)
[2018-02-06 11:31] LABS: Poikilocytosis (M) Present
[2018-02-06 11:55] LABS: Glucose,Whole Blood 154 mg/dL (75-99)
[2018-02-06] MEDS ORDERED: PHENAZOPYRIDINE 200 MG TAB PO SCH (12:15)
[2018-02-06] MEDS: PHENAZOPYRIDINE 100 MG TAB PO SCH ×3 (12:41→23:54)
[2018-02-06 15:29] VITALS: BMI 37.7
--- NOTE | 2018-02-06 16:25 | PN ---
PROGRESS NOTE DATE OF SERVICE: 02/05/18 PRESENTING COMPLAINT: Tired. INTERVAL HISTORY: This patient presented with , started on hemodialysis. Also treated for UTI and dysuria. The patient had spiked a fever, which is now settled down. Overall feeling better. reinforcing iron worker helper is arranging for outpatient dialysis. The patient was seen by WAREHOUSE OPERATIONS MANAGER for discomfort in the perineal area. REVIEW OF SYSTEMS: Done for constitutional, cardiovascular, GI, pulmonary; relevant findings as above. CURRENT MEDICATIONS: Include IV ceftriaxone. PHYSICAL EXAMINATION: Temperature 98.5, pulse 73, respiration 17, blood pressure 122/62, pulse ox 93% on room air. GENERAL APPEARANCE: Lying in bed comfortable, awake. EYES: Pupils equal. Conjunctivae pale. HEENT: External appearance of nose and ears normal. Oral cavity normal. NECK: JVD not raised. Mass not palpable. RESPIRATORY: Effort normal. Lungs, decreased breath sounds. CARDIOVASCULAR: First and second sounds are normal. No edema. ABDOMEN: Soft, nontender. Liver and spleen not palpable. PSYCHIATRY: Alert and oriented x3. Mood and affect normal. INVESTIGATIONS: Accu-Cheks noted. ASSESSMENT: 1. Acute renal failure on chronic kidney disease advanced to end-stage kidney disease, now patient on initial hemodialysis. 2. Severe metabolic acidosis from renal failure improving. 3. Normocytic anemia from chronic kidney disease. 4. 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 5. Hypoalbuminemia from chronic kidney disease. 6. Hard of hearing. 7. Coronary artery disease, prior history of stent. 8. Hyperlipidemia. 9. Essential hypertension. 10.Primary osteoarthritis. 11.Dysuria from urinary tract infection. PLAN: Care was discussed with the 2 sons at the bedside. Hopefully looking at discharge tomorrow once hemodialysis is set up. The patient is still having some dysuria. May use some topical cream in the vaginal area to keep her from being dry. MMODL / IJN: [id number] /
[2018-02-06 17:12] LABS: Glucose,Whole Blood 214 mg/dL (75-99)
[2018-02-06 20:44] LABS: Glucose,Whole Blood 110 mg/dL (75-99)
[2018-02-06] MEDS ORDERED: ZINC OXIDE 20% OINT 28.4 GM TUBE TOPICAL PRN (21:39)
--- NOTE | 2018-02-06 21:45 | P.PN ---
Subjective Progress Note Date: 02/06/18 78-year-old female who is known to nephrology for chronic kidney disease is having a decline of her status. She does have access in the left arm but it is nonfunctional. She recently has had onset of symptoms of significant dysuria with frequency. She has been treated in the outpatient setting with oral antibiotic therapy and Pyridium but without improvement. With her worsening of her status and her increasing creatinine she presented to our facility with a creatinine greater than 5. Also evidence of urinary tract infection and sepsis and consequently infectious diseases consultation was requested. The patient relates that she is miserable because of her dysuria. The pain is quite severe. She also complains that she's had significant constipation and if she were at home she would take further laxatives. She did have fever but this is improved she's not having chills or rigors. She's had some progressive weakness. As noted she has had decline of her renal status and has started hemodialysis today by the new PermCath that was placed. 02/06/2018 patient is quite miserable today. She relates that she has chronic back pain which flared quite significantly last night giving her a rough night. Antibiotic the severe burning that she's had the vaginal area has again worsened despite some local care. She is quite miserable and is really hoping to try to feel better. Objective - Vital Signs Vital signs: Vital Signs Temp 98.2 F 02/06/18 13:56 Pulse 68 02/06/18 13:56 Resp 17 02/06/18 13:56 BP 159/63 02/06/18 13:56 Pulse Ox 94 L 02/06/18 13:56 Intake & Output 02/06/18 02/06/18 02/07/18 06:59 18:59 06:59 Intake Total 100 Balance 100 Weight 93.5 kg 93.5 kg Intake: IV 100 Sodium Ferric Gluconat- 100 Sucrose 125 mg In Sodium Chloride 0.9% 100 ml @ 100 mls/hr IVPB DAILY [facility] Rx#:[id number] Other: Voiding Method Diaper Diaper Incontinent Incontinent # Voids 3 # Bowel Movements 1 - Exam Elderly 78-year-old woman who appears chronically ill complaining of pain with urination HEENT: Anicteric conjunctiva are pink and moist nasal mucosa grossly intact without significant lesions, there is no thrush. Neck: The neck is supple without significant lymphadenopathy or thyromegaly. Lungs: Good bilateral air entry without significant crackles or wheezing. There is no significant bronchial sounds. There is no egophony or dullness. Heart: Regular rate and rhythm with an audible S1-S2, no S3 no S4. There is no significant murmur click or rub, PMI was nondisplaced. Abdomen: Positive bowel sounds soft and nontender without palpable masses or organomegaly. Does have some mild right flank tenderness. There was no guarding or rebound. Extremities: The upper extremities have excellent pulses they are symmetric, no significant petechiae or telangiectasia. No splinter hemorrhages were noted. The lower extremities have minimal bilateral lower extremity edema. The peripheral pulses were 2+ and symmetric. Neuro: Awake alert oriented to person place and time. There are no acute new gross focal sensory motor deficits. Was evaluated by gynecology and is evidence of some significant irritation to the periarea Tissue - Labs CBC & Chem 7: 02/06/18 08:10 02/06/18 08:10 Labs: Abnormal Lab Results - Last 24 Hours (Table) 02/06/18 02/06/18 02/06/18 Range/Units 07:09 08:10 08:10 RBC 2.78 L (3.80-5.40) m/uL Hgb 7.4 L (11.4-16.0) gm/dL Hct 25.5 L (34.0-46.0) % MCHC 29.0 L (31.0-37.0) g/dL RDW 20.5 H (11.5-15.5) % Chloride 109 H (98-107) mmol/L BUN 33 H (7-17) mg/dL Creatinine 3.53 H (0.52-1.04) mg/dL Glucose 181 H (74-99) mg/dL POC Glucose (mg/dL) 187 H (75-99) mg/dL Calcium 8.1 L (8.4-10.2) mg/dL 02/06/18 02/06/18 02/06/18 Range/Units 11:37 17:11 20:42 RBC (3.80-5.40) m/uL Hgb (11.4-16.0) gm/dL Hct (34.0-46.0) % MCHC (31.0-37.0) g/dL RDW (11.5-15.5) % Chloride (98-107) mmol/L BUN (7-17) mg/dL Creatinine (0.52-1.04) mg/dL Glucose (74-99) mg/dL POC Glucose (mg/dL) 154 H 214 H 110 H (75-99) mg/dL Calcium (8.4-10.2) mg/dL Microbiology - Last 24 Hours (Table) 02/02/18 20:41 Blood Culture - Preliminary Blood No Growth after 72 hours Laboratory Results WBC 5.1 k/uL (3.8-10.6) 02/06/18 08:10 RBC 2.78 m/uL (3.80-5.40) L 02/06/18 08:10 Hgb 7.4 gm/dL (11.4-16.0) L 02/06/18 08:10 Hct 25.5 % (34.0-46.0) L 02/06/18 08:10 MCV 91.8 fL (80.0-100.0) 02/06/18 08:10 MCH 26.6 pg (25.0-35.0) 02/06/18 08:10 MCHC 29.0 g/dL (31.0-37.0) L 02/06/18 08:10 RDW 20.5 % (11.5-15.5) H 02/06/18 08:10 Plt Count 242 k/uL (150-450) 02/06/18 08:10 Neutrophils % 61 % 02/06/18 08:10 Lymphocytes % 19 % 02/06/18 08:10 Monocytes % 12 % 02/06/18 08:10 Eosinophils % 5 % 02/06/18 08:10 Basophils % 1 % 02/06/18 08:10 Neutrophils # 3.1 k/uL (1.3-7.7) 02/06/18 08:10 Lymphocytes # 1.0 k/uL (1.0-4.8) 02/06/18 08:10 Monocytes # 0.6 k/uL (0-1.0) 02/06/18 08:10 Eosinophils # 0.2 k/uL (0-0.7) 02/06/18 08:10 Basophils # 0.0 k/uL (0-0.2) 02/06/18 08:10 Manual Slide Review Performed 02/06/18 08:10 Hypochromasia Marked 02/06/18 08:10 Poikilocytosis Slight 01/31/18 08:38 Poikilocytosis (manual Present 02/06/18 08:10 Anisocytosis Moderate 02/06/18 08:10 PT 10.3 sec (9.0-12.0) 02/02/18 11:12 INR 1.1 (<1.2) 02/02/18 11:12 Sodium 140 mmol/L (137-145) 02/06/18 08:10 Potassium 4.2 mmol/L (3.5-5.1) 02/06/18 08:10 Chloride 109 mmol/L (98-107) H 02/06/18 08:10 Carbon Dioxide 22 mmol/L (22-30) 02/06/18 08:10 Anion Gap 9 mmol/L 02/06/18 08:10 BUN 33 mg/dL (7-17) H 02/06/18 08:10 Creatinine 3.53 mg/dL (0.52-1.04) H 02/06/18 08:10 Est GFR (CKD-EPI)AfAm 14 (>60 ml/min/1.73 sqM) 02/06/18 08:10 Est GFR (CKD-EPI)NonAf 12 (>60 ml/min/1.73 sqM) 02/06/18 08:10 Glucose 181 mg/dL (74-99) H 02/06/18 08:10 POC Glucose (mg/dL) 110 mg/dL (75-99) H 02/06/18 20:42 POC Glu Employee'S Representative ID Gina Holcomb 02/06/18 20:[address] Glu mg/dL 108 01/31/18 08:38 Hemoglobin A1c 5.4 % (4.0-6.0) 01/31/18 08:38 Calcium 8.1 mg/dL (8.4-10.2) L 02/06/18 08:10 Phosphorus 5.7 mg/dL (2.5-4.5) H 01/31/18 08:38 Magnesium 2.0 mg/dL (1.6-2.3) 01/31/18 08:38 Iron 64 ug/dL (50-170) 01/31/18 08:38 TIBC 295 ug/dL (228-460) 01/31/18 08:38 Iron Saturation 21.69 (12.00-45.00) 01/31/18 08:38 Total Bilirubin 0.3 mg/dL (0.2-1.3) 02/01/18 10:20 AST 18 U/L (14-36) 02/01/18 10:20 ALT 27 U/L (9-52) 02/01/18 10:20 Alkaline Phosphatase 79 U/L (38-126) 02/01/18 10:20 Total Protein 5.9 g/dL (6.3-8.2) L 02/01/18 10:20 Albumin 2.9 g/dL (3.5-5.0) L 02/01/18 10:20 Urine Color Dark Yellow 02/03/18 06:30 Urine Appearance Turbid (Clear) H 02/03/18 06:30 Urine pH 6.0 (5.0-8.0) 02/03/18 06:30 Ur Specific [place] 1.015 (1.001-1.035) 02/03/18 06:30 Urine Protein 3+ (Negative) H 02/03/18 06:30 Urine Glucose (UA) 2+ (Negative) H 02/03/18 06:30 Urine Ketones Negative (Negative) 02/03/18 06:30 Urine Blood Moderate (Negative) H 02/03/18 06:30 Urine Nitrite Negative (Negative) 02/03/18 06:30 Urine Bilirubin Negative (Negative) 02/03/18 06:30 Urine Urobilinogen <2.0 mg/dL (<2.0) 02/03/18 06:30 Ur Leukocyte Esterase Large (Negative) H 02/03/18 06:30 Urine RBC 27 /hpf (0-5) H 02/03/18 06:30 Urine WBC >182 /hpf (0-5) H 02/03/18 06:30 Urine WBC Clumps Many /hpf (None) H 02/03/18 06:30 Ur Squamous Epith Cells 8 /hpf (0-4) H 02/01/18 05:50 Urine Bacteria Occasional /hpf (None) H 02/03/18 06:30 Hepatitis A IgM Ab Non-Reactive (Non-Reactive) 02/02/18 09:03 Hep Bs Antigen Non-Reactive (Non-Reactive) 02/02/18 09:03 Hep B Core IgM Ab Non-Reactive (Non-Reactive) 02/02/18 09:03 Hep C IgG Ab Non-Reactive (Non-Reactive) 02/02/18 09:03 Microbiology 02/02/18 20:41 Blood Blood Culture - Preliminary No Growth after 72 hours 02/03/18 06:30 Urine,Catheterized Urine Culture - Final 02/01/18 05:50 Urine,Voided Urine Culture - Final Assessment and Plan (1) Chronic kidney disease Current Visit: Yes Status: Acute Code(s): N18.9 - CHRONIC KIDNEY DISEASE, UNSPECIFIED SNOMED Code(s): 459743072 (2) UTI (urinary tract infection) Narrative/Plan: 78-year-old female who has chronic kidney disease is now had progression of her renal disease to require dialysis at this time. She required placement of the PermCath for hemodialysis because the nonfunctional graft in the left forearm. Her first cycle of hemodialysis was short but she seemed to tolerate it well. She presented with increasing weakness and evidence of a urinary tract infection with significant dysuria. This continues to bother her greatly. Tylenol was not helpful. We'll dose of [place] has been added an attempt to try to improve her significant discomfort. Antibiotic therapy with ceftriaxone is being utilized lower awaiting the final urine culture. The family inquired about peridium and we discussed that with her poor renal function this is not an option at this time. Hopefully with fluids, dialysis and some improved pain medications she will have some improvement of her status. Lactulose has been requested daily to help with her constipation. The urine culture is in process and will further help direct antibiotic therapy, blood cultures negative so far. 02/06/2018 patient remains miserable having significant pain with her back and pain medications have been ordered by her primary team will have a better night. Is again having significant burning to the tissue around the vaginal area and perineum, the botanical zinc cause some burning possibly from the many agencies been added to the zinc. Plain zinc oxide has been ordered and should be tried. Unclear if she would benefit from the female urinary catheter, that is not the [place]. No evidence of infection at this time but likely has some secondary yeast infection and some fluconazole is added. Current Visit: Yes Status: Acute Code(s): N39.0 - URINARY TRACT INFECTION, SITE NOT SPECIFIED SNOMED Code(s): 34110739 (3) Dysuria Current Visit: Yes Status: Acute Code(s): R30.0 - DYSURIA SNOMED Code(s): 11774586
[2018-02-06] MEDS: cefTRIAXone IN SWFI 1,000 MG/10 ML SYRINGE IVP SCH (23:48)
[2018-02-06] MEDS: FLUCONAZOLE 100 MG TAB PO SCH (23:55)
[2018-02-06] MEDS: PRAVASTATIN SODIUM 40 MG TAB PO SCH (23:55)
[2018-02-06] MEDS: METOPROLOL TARTRATE 50 MG TAB PO SCH (23:57)
[2018-02-07] MEDS: DARBEPOETIN ALFA 100MCG/0.5ML SYRINGE SQ SCH (00:06)
[2018-02-07] MEDS: ACETAMINOPHEN TAB 325 MG TAB PO PRN ×2 (05:28→15:46)
[2018-02-07 07:32] LABS: Glucose,Whole Blood 139 mg/dL (75-99)
[2018-02-07] MEDS: LACTULOSE 20 GM/30 ML CUP PO SCH (08:02)
--- NOTE | 2018-02-07 08:02 | PN ---
PROGRESS NOTE DATE OF SERVICE: 02/06/2018 This 78-year-old woman who was admitted with acute renal failure on hemodialysis. The patient complaining of generalized tiredness and weakness and pain also. No chest pain. No palpitations. No fever. The PICC line has been inserted. Patient complaining of severe dysuria. PHYSICAL EXAM: Alert and oriented x2. Pulse 68. Blood pressure 159/66, respiration 17, temperature 98.2, pulse ox 94% on room air. HEENT: Conjunctivae normal. Oral mucosa moist. Neck is no jugular venous distention. No carotid bruit. No lymph nodes enlargement. Cardiovascular system: S1, S2 muffled. Respiration: Breath sounds diminished at the bases. No rhonchi. No crackles. ABDOMEN: Soft, nontender. No mass palpable. Legs no edema. No swelling. Central nervous system: No focal deficits. LABS: Hemoglobin 7.4, and creatinine 3.53. ASSESSMENT: 1. Acute renal failure with acute on chronic kidney disease stage 4 on hemodialysis. 2. Urinary tract infection. 3. Severe pain and dysuria. 4. Severe metabolic acidosis. 5. Normocytic anemia. 6. Hypoalbuminemia. 7. Hard of hearing. 8. Coronary artery disease, stent. 9. Hyperlipidemia. 10.Hypertension. 11.Degenerative joint disease. RECOMMENDATIONS AND DISCUSSION: Recommend to continue current management and symptomatic treatment, continue with Pyridium has been added. Otherwise continue the rest of medications. Continue the antibiotics. The patient is on Rocephin at this time. The patient is also receiving Bracey. Otherwise, prognosis guarded because of multiple complex medical issues and see further orders for details. Once the patient is stabilized, we will plan for a possible ECF rehab. MMODL / IJN: [id number] /
[2018-02-07] MEDS: NON-FORMULARY DRUG (Linaclotide [Linzess] 145 MCG) PO SCH (08:03)
[2018-02-07] MEDS: SODIUM BICARBONATE TAB 650 MG TAB PO SCH (08:05)
[2018-02-07] MEDS: MAGNESIUM OXIDE 400 MG TAB PO SCH (08:05)
[2018-02-07] MEDS: LOSARTAN 50 MG TAB PO SCH (08:05)
[2018-02-07] MEDS: PANTOPRAZOLE 40 MG TABLET PO SCH (08:05)
[2018-02-07] MEDS: PHENAZOPYRIDINE 100 MG TAB PO SCH ×2 (08:05→15:46)
[2018-02-07] MEDS: FLUCONAZOLE 100 MG TAB PO SCH (08:05)
[2018-02-07] MEDS: amLODIPine 10 MG TAB PO SCH (08:05)
[2018-02-07] MEDS: hydrALAZINE HCL 50 MG TAB PO SCH ×2 (08:05→15:46)
[2018-02-07] MEDS: ASPIRIN 81 MG PO SCH (08:06)
[2018-02-07] MEDS: INSULIN ASPART 100 UNIT/ML 1 ML 10 ML VIAL SQ SCH ×3 (08:06→17:54)
[2018-02-07] MEDS: ISOSORBIDE MONONITRATE ER 60 MG TAB.ER.24H PO SCH (08:06)
[2018-02-07] MEDS: METOPROLOL TARTRATE 50 MG TAB PO SCH ×2 (08:06→15:46)
[2018-02-07] MEDS: CALCIUM ACETATE 667 MG CAP PO SCH ×3 (08:06→17:54)
[2018-02-07] MEDS: ALPRAZolam 0.5 MG TAB PO SCH (08:06)
--- NOTE | 2018-02-07 10:25 | CDI ---
Last Revision, June 2017 Documentation Clarification Form Date: 02/07/2018 10:03:00 AM From: Ruthy Higgins RN Admit Date: 01/30/2018 8:05:00 PM Patient Name: Kasie Garcia Visit Number: [id number] ATTENTION: The Clinical Documentation Specialists (CDI) and [facility] Coding Staff appreciate your assistance in clarifying documentation. Please respond to the clarification below the line at the bottom and electronically sign. The CDI & [facility] Coding staff will review the response and follow-up if needed. Please note: Queries are made part of the Legal Health Record. If you have any questions, please contact the author of this message via ITS. Dr. Azam Blackwell, Please render your opinion on ID documentation of Sepsis. Patient admitted with weak, tired, UTI and acute kidney failure with cr. >5.. History/Risk Factors: CAD WITH stents, DM 2, HTN, CKD 4, hyperlipidemia, failed outpatient treatment for UTI Clinical Indicators: Complains of Dysuria WBC on admission: 4.8, 02/06 5.1 Lactic acid: neg. Blood cultures: no growth in 96 hours. Urine culture 10,000-49,000 CFU/ml apparent skin & or genital patrick. Vitals signs on admission: T 98.7, P 92, R 20, 179/77, 96% RA Other Clinical Indicators: Consult 02/03: Also evidence of urinary tract infection and sepsis". PN 02/[address] Orta states, "Also evidence of urinary tract infection and sepsis and consequently infectious diseases consultation was requested". Patient is being treated for a UTI. Treatment: ID Consult: Dr. Orta Antibiotics: Diflucan PO, Pyridium, Clindamycin IVPB, Rocephin IVPB IV fluids: .9 @ 50ml/hr In your professional opinion, please render your opinion on documentation of Sepsis Sepsis ruled in Sepsis ruled out Other, please specify Unable to determine Present on Admission: Yes No Please continue to document in your progress notes, under the line below and/ or in the discharge summary in order to capture severity of illness and risk of mortality. Include clinical findings that support your diagnosis. Unable to determine MTDD
--- NOTE | 2018-02-07 10:51 | P.PN ---
Subjective Patient is seen in follow-up for end-stage renal disease. She was started on hemodialysis this admission. Currently resting in bed. Denies chest pain or shortness of breath. Admits to burning with urination. No vomiting or diarrhea. Currently being treated for UTI. Vital signs are stable. General: The patient appeared well nourished and normally developed. HEENT: Head exam is unremarkable. Neck is without jugular venous distension. LUNGS: Lungs are clear to auscultation and percussion. Breath sounds decreased. HEART: Rate and Rhythm are regular. First and second heart sounds normal. No murmurs, rubs or gallops. ABDOMEN: Abdominal exam reveals normal bowel sounds. Non-tender and non- distended. No evidence of peritonitis. EXTREMITITES: No clubbing, cyanosis, or edema. Objective - Vital Signs Vital signs: Vital Signs Temp 99.7 F H 02/07/18 06:53 Pulse 61 02/07/18 05:30 Resp 24 02/07/18 05:30 BP 133/61 02/07/18 05:30 Pulse Ox 91 L 02/07/18 05:30 Intake & Output 02/06/18 02/07/18 02/07/18 18:59 06:59 18:59 Intake Total 100 Balance 100 Weight 93.5 kg 94.5 kg Intake: IV 100 Sodium Ferric Gluconat- 100 Sucrose 125 mg In Sodium Chloride 0.9% 100 ml @ 100 mls/hr IVPB DAILY [facility] Rx#:[id number] Other: Voiding Method Diaper Diaper Diaper Incontinent Incontinent Incontinent # Voids 3 # Bowel Movements 1 - Labs CBC & Chem 7: 02/06/18 08:10 02/06/18 08:10 Labs: Abnormal Lab Results - Last 24 Hours (Table) 02/06/18 02/06/18 02/06/18 Range/Units 08:10 11:37 17:11 RBC 2.78 L (3.80-5.40) m/uL Hgb 7.4 L (11.4-16.0) gm/dL Hct 25.5 L (34.0-46.0) % MCHC 29.0 L (31.0-37.0) g/dL RDW 20.5 H (11.5-15.5) % POC Glucose (mg/dL) 154 H 214 H (75-99) mg/dL 02/06/18 02/07/18 Range/Units 20:42 07:25 RBC (3.80-5.40) m/uL Hgb (11.4-16.0) gm/dL Hct (34.0-46.0) % MCHC (31.0-37.0) g/dL RDW (11.5-15.5) % POC Glucose (mg/dL) 110 H 139 H (75-99) mg/dL Microbiology - Last 24 Hours (Table) 02/02/18 20:41 Blood Culture - Preliminary Blood No Growth after 96 hours Assessment and Plan Plan: Assessment: 1. End-stage renal disease started on hemodialysis this admission. 2. UTI maintained on antibiotics. Infectious disease following. Diflucan added. 3. Metabolic acidosis secondary to chronic kidney disease maintained on oral sodium bicarbonate. 4. Hypertension with chronic kidney disease. Controlled. 5. Anemia of chronic kidney disease maintained on Aranesp. Mild iron deficiency noted - status post 3 doses of IV iron. 6. Diabetes mellitus. Plan: Hemodialysis tomorrow. Maintain current antihypertensives. Patient being set up for hemodialysis as outpatient in [facility]. Monitor hemoglobin. Consider transfusion if drops further.
[2018-02-07 11:31] LABS: Glucose,Whole Blood 176 mg/dL (75-99)
[2018-02-07 12:27] LABS: Anisocytosis Moderate; Basophils % (A) 1 %; Eosinophils # (A) 0.2 k/uL (0-0.7); Eosinophils % (A) 4 %; HCT 24.6 % (34.0-46.0); HGB 7.2 gm/dL (11.4-16.0); Hypochromasia Marked; Lymphocytes # (A) 0.9 k/uL (1.0-4.8); Lymphocytes % (A) 17 %; MCH 27.1 pg (25.0-35.0); MCHC 29.3 g/dL (31.0-37.0); MCV 92.6 fL (80.0-100.0); Macrocytosis Slight; Mean Platelet Volume 7.3; Monocytes # (A) 0.5 k/uL (0-1.0); Monocytes % (A) 9 %; Neutrophils # (A) 3.4 k/uL (1.3-7.7); Neutrophils % (A) 66 %; Platelet Count 210 k/uL (150-450); RBC 2.65 m/uL (3.80-5.40); RDW 20.5 % (11.5-15.5); WBC 5.1 k/uL (3.8-10.6)
[2018-02-07 12:44] LABS: Albumin 2.6 g/dL (3.5-5.0); Calcium 8.1 mg/dL (8.4-10.2); Potassium 3.7 mmol/L (3.5-5.1); Total Bilirubin 0.2 mg/dL (0.2-1.3); Total Protein 5.4 g/dL (6.3-8.2)
[2018-02-07 13:47] VITALS: BP 106/54; PULSE 69; RESP 18; TEMP 98.2
[2018-02-07 17:32] LABS: Glucose,Whole Blood 168 mg/dL (75-99)
--- NOTE | 2018-02-07 17:47 | DS ---
DISCHARGE SUMMARY FINAL DIAGNOSES: 1. Acute renal failure with acute on chronic kidney disease stage 4 on hemodialysis. 2. Urinary tract infection. 3. Chronic obstructive pulmonary disease. 4. Severe metabolic acidosis and normocytic anemia. 5. Hypoalbuminemia. 6. Hard of hearing. 7. Coronary artery disease with stent. 8. Hyperlipidemia. 9. Hypertension. 10.History of degenerative joint disease. DISCHARGE DISPOSITION: The patient will be discharged in stable condition with guarded prognosis. Total time 35 minutes. HISTORY OF PRESENT ILLNESS: This 78-year-old woman with a past medical history of multiple medical problems was admitted with renal failure, UTI and other multiple medical issues. Patient was treated symptomatically. The possibility of ECF rehab was also considered; however, the patient is going home at this time. Resume home care. EXAM: Vitals are stable. CARDIOVASCULAR: S1, S2 muffled. ABDOMEN: Soft. NERVOUS SYSTEM: No focal deficit. The patient will be discharged in stable condition with guarded prognosis. Total time taken 35 minutes. DISCHARGE ADVICE AND MEDICATIONS: Diet is cardiac. Activity limited until followup. Follow up with Dr. Winchester in 2-3 days. Follow up with Dr. Dennison as advised. Medications are as follows. The home medications are as follows: 1. Xanax 0.5 q.i.d. 2. Bumex 4 mg p.o. b.i.d. 3. PhosLo 1334 mg p.o. t.i.d. 4. Ancef 100 mcg q.7 days. 5. Apresoline 50 mg p.o. t.i.d. 6. NovoLog scale. 7. Imdur ER 60 mg p.o. daily. 8. Linzess 145 mg p.o. daily. 9. Magnesium 500 mg p.o. daily. 10.Lopressor 50 mg p.o. t.i.d. 11.Protonix 40 mg daily. 12.Pravachol 40 mg q.h.s. 13.Sodium bicarb 650 p.o. b.i.d. 14.Tylenol 650 every 6 hours p.r.n. 15.Norvasc 10 mg p.o. daily. 16.Aspirin 81 mg p.o. daily. 17.Ceftin 500 mg p.o. b.i.d. for [address] Orta. 18.Diflucan 100 mg p.o. daily for 7 days. 19.Lactulose 30 g p.r.n. 20.Cozaar 50 mg p.o. daily. 21. 100 mg p.o. t.i.d. for 1 week. 22.Zinc oxide p.r.n. Once again, the patient will be discharged in stable condition with guarded prognosis. MMODL / IJN: [id number] /
--- NOTE | 2018-02-07 22:14 | P.PN ---
Subjective Progress Note Date: 02/07/18 78-year-old female who is known to nephrology for chronic kidney disease is having a decline of her status. She does have access in the left arm but it is nonfunctional. She recently has had onset of symptoms of significant dysuria with frequency. She has been treated in the outpatient setting with oral antibiotic therapy and Pyridium but without improvement. With her worsening of her status and her increasing creatinine she presented to our facility with a creatinine greater than 5. Also evidence of urinary tract infection and sepsis and consequently infectious diseases consultation was requested. The patient relates that she is miserable because of her dysuria. The pain is quite severe. She also complains that she's had significant constipation and if she were at home she would take further laxatives. She did have fever but this is improved she's not having chills or rigors. She's had some progressive weakness. As noted she has had decline of her renal status and has started hemodialysis today by the new PermCath that was placed. 02/06/2018 patient is quite miserable today. She relates that she has chronic back pain which flared quite significantly last night giving her a rough night. Antibiotic the severe burning that she's had the vaginal area has again worsened despite some local care. She is quite miserable and is really hoping to try to feel better. 02/07/2018 patient is less miserable today. With dialysis she is feeling somewhat better. And with the local care which was of plain zinc, as well as antifungal therapy with fluconazole is feeling better. Objective - Vital Signs Vital signs: Vital Signs Temp 98.2 F 02/07/18 13:46 Pulse 69 02/07/18 13:46 Resp 18 02/07/18 13:46 BP 106/54 02/07/18 13:46 Pulse Ox 90 L 02/07/18 13:46 Intake & Output 02/07/18 02/07/18 02/08/18 06:59 18:59 06:59 Weight 94.5 kg Other: Voiding Method Diaper Diaper Incontinent Incontinent # Voids 3 1 # Bowel Movements 1 - Exam Elderly 78-year-old woman who appears chronically ill complaining of pain with urination HEENT: Anicteric conjunctiva are pink and moist nasal mucosa grossly intact without significant lesions, there is no thrush. Neck: The neck is supple without significant lymphadenopathy or thyromegaly. Lungs: Good bilateral air entry without significant crackles or wheezing. There is no significant bronchial sounds. There is no egophony or dullness. Heart: Regular rate and rhythm with an audible S1-S2, no S3 no S4. There is no significant murmur click or rub, PMI was nondisplaced. Abdomen: Positive bowel sounds soft and nontender without palpable masses or organomegaly. Does have some mild right flank tenderness. There was no guarding or rebound. Extremities: The upper extremities have excellent pulses they are symmetric, no significant petechiae or telangiectasia. No splinter hemorrhages were noted. The lower extremities have minimal bilateral lower extremity edema. The peripheral pulses were 2+ and symmetric. Neuro: Awake alert oriented to person place and time. There are no acute new gross focal sensory motor deficits. Was evaluated by gynecology and is evidence of some significant irritation to the periarea Tissue - Labs CBC & Chem 7: 02/07/18 12:11 02/07/18 12:11 Labs: Abnormal Lab Results - Last 24 Hours (Table) 02/07/18 02/07/18 02/07/18 Range/Units 07:25 11:29 12:11 RBC 2.65 L (3.80-5.40) m/uL Hgb 7.2 L (11.4-16.0) gm/dL Hct 24.6 L (34.0-46.0) % MCHC 29.3 L (31.0-37.0) g/dL RDW 20.5 H (11.5-15.5) % Lymphocytes # 0.9 L (1.0-4.8) k/uL BUN (7-17) mg/dL Creatinine (0.52-1.04) mg/dL Glucose (74-99) mg/dL POC Glucose (mg/dL) 139 H 176 H (75-99) mg/dL Calcium (8.4-10.2) mg/dL Total Protein (6.3-8.2) g/dL Albumin (3.5-5.0) g/dL 02/07/18 02/07/18 Range/Units 12:11 17:30 RBC (3.80-5.40) m/uL Hgb (11.4-16.0) gm/dL Hct (34.0-46.0) % MCHC (31.0-37.0) g/dL RDW (11.5-15.5) % Lymphocytes # (1.0-4.8) k/uL BUN 22 H (7-17) mg/dL Creatinine 2.68 H (0.52-1.04) mg/dL Glucose 147 H (74-99) mg/dL POC Glucose (mg/dL) 168 H (75-99) mg/dL Calcium 8.1 L (8.4-10.2) mg/dL Total Protein 5.4 L (6.3-8.2) g/dL Albumin 2.6 L (3.5-5.0) g/dL Microbiology - Last 24 Hours (Table) 02/02/18 20:41 Blood Culture - Preliminary Blood No Growth after 96 hours Laboratory Results WBC 5.1 k/uL (3.8-10.6) 02/07/18 12:11 RBC 2.65 m/uL (3.80-5.40) L 02/07/18 12:11 Hgb 7.2 gm/dL (11.4-16.0) L 02/07/18 12:11 Hct 24.6 % (34.0-46.0) L 02/07/18 12:11 MCV 92.6 fL (80.0-100.0) 02/07/18 12:11 MCH 27.1 pg (25.0-35.0) 02/07/18 12:11 MCHC 29.3 g/dL (31.0-37.0) L 02/07/18 12:11 RDW 20.5 % (11.5-15.5) H 02/07/18 12:11 Plt Count 210 k/uL (150-450) 02/07/18 12:11 Neutrophils % 66 % 02/07/18 12:11 Lymphocytes % 17 % 02/07/18 12:11 Monocytes % 9 % 02/07/18 12:11 Eosinophils % 4 % 02/07/18 12:11 Basophils % 1 % 02/07/18 12:11 Neutrophils # 3.4 k/uL (1.3-7.7) 02/07/18 12:11 Lymphocytes # 0.9 k/uL (1.0-4.8) L 02/07/18 12:11 Monocytes # 0.5 k/uL (0-1.0) 02/07/18 12:11 Eosinophils # 0.2 k/uL (0-0.7) 02/07/18 12:11 Basophils # 0.0 k/uL (0-0.2) 02/07/18 12:11 Manual Slide Review Performed 02/06/18 08:10 Hypochromasia Marked 02/07/18 12:11 Poikilocytosis Slight 01/31/18 08:38 Poikilocytosis (manual Present 02/06/18 08:10 Anisocytosis Moderate 02/07/18 12:11 Macrocytosis Slight 02/07/18 12:11 PT 10.3 sec (9.0-12.0) 02/02/18 11:12 INR 1.1 (<1.2) 02/02/18 11:12 Sodium 137 mmol/L (137-145) 02/07/18 12:11 Potassium 3.7 mmol/L (3.5-5.1) 02/07/18 12:11 Chloride 104 mmol/L (98-107) 02/07/18 12:11 Carbon Dioxide 25 mmol/L (22-30) 02/07/18 12:11 Anion Gap 8 mmol/L 02/07/18 12:11 BUN 22 mg/dL (7-17) H 02/07/18 12:11 Creatinine 2.68 mg/dL (0.52-1.04) H 02/07/18 12:11 Est GFR (CKD-EPI)AfAm 19 (>60 ml/min/1.73 sqM) 02/07/18 12:11 Est GFR (CKD-EPI)NonAf 17 (>60 ml/min/1.73 sqM) 02/07/18 12:11 Glucose 147 mg/dL (74-99) H 02/07/18 12:11 POC Glucose (mg/dL) 168 mg/dL (75-99) H 02/07/18 17:30 POC Glu [employer] ID Eufemia Romero 02/07/18 17:[address] Glu mg/dL 108 01/31/18 08:38 Hemoglobin A1c 5.4 % (4.0-6.0) 01/31/18 08:38 Calcium 8.1 mg/dL (8.4-10.2) L 02/07/18 12:11 Phosphorus 5.7 mg/dL (2.5-4.5) H 01/31/18 08:38 Magnesium 2.0 mg/dL (1.6-2.3) 01/31/18 08:38 Iron 64 ug/dL (50-170) 01/31/18 08:38 TIBC 295 ug/dL (228-460) 01/31/18 08:38 Iron Saturation 21.69 (12.00-45.00) 01/31/18 08:38 Total Bilirubin 0.2 mg/dL (0.2-1.3) 02/07/18 12:11 AST 21 U/L (14-36) 02/07/18 12:11 ALT 28 U/L (9-52) 02/07/18 12:11 Alkaline Phosphatase 73 U/L (38-126) 02/07/18 12:11 Total Protein 5.4 g/dL (6.3-8.2) L 02/07/18 12:11 Albumin 2.6 g/dL (3.5-5.0) L 02/07/18 12:11 Urine Color Dark Yellow 02/03/18 06:30 Urine Appearance Turbid (Clear) H 02/03/18 06:30 Urine pH 6.0 (5.0-8.0) 02/03/18 06:30 Ur Specific [place] 1.015 (1.001-1.035) 02/03/18 06:30 Urine Protein 3+ (Negative) H 02/03/18 06:30 Urine Glucose (UA) 2+ (Negative) H 02/03/18 06:30 Urine Ketones Negative (Negative) 02/03/18 06:30 Urine Blood Moderate (Negative) H 02/03/18 06:30 Urine Nitrite Negative (Negative) 02/03/18 06:30 Urine Bilirubin Negative (Negative) 02/03/18 06:30 Urine Urobilinogen <2.0 mg/dL (<2.0) 02/03/18 06:30 Ur Leukocyte Esterase Large (Negative) H 02/03/18 06:30 Urine RBC 27 /hpf (0-5) H 02/03/18 06:30 Urine WBC >182 /hpf (0-5) H 02/03/18 06:30 Urine WBC Clumps Many /hpf (None) H 02/03/18 06:30 Ur Squamous Epith Cells 8 /hpf (0-4) H 02/01/18 05:50 Urine Bacteria Occasional /hpf (None) H 02/03/18 06:30 Hepatitis A IgM Ab Non-Reactive (Non-Reactive) 02/02/18 09:03 Hep Bs Antigen Non-Reactive (Non-Reactive) 02/02/18 09:03 Hep B Core IgM Ab Non-Reactive (Non-Reactive) 02/02/18 09:03 Hep C IgG Ab Non-Reactive (Non-Reactive) 02/02/18 09:03 Microbiology 02/02/18 20:41 Blood Blood Culture - Preliminary No Growth after 96 hours 02/03/18 06:30 Urine,Catheterized Urine Culture - Final 02/01/18 05:50 Urine,Voided Urine Culture - Final Assessment and Plan (1) Chronic kidney disease Status: Acute Code(s): N18.9 - CHRONIC KIDNEY DISEASE, UNSPECIFIED SNOMED Code(s): 837662518 (2) UTI (urinary tract infection) Narrative/Plan: 78-year-old female who has chronic kidney disease is now had progression of her renal disease to require dialysis at this time. She required placement of the PermCath for hemodialysis because the nonfunctional graft in the left forearm. Her first cycle of hemodialysis was short but she seemed to tolerate it well. She presented with increasing weakness and evidence of a urinary tract infection with significant dysuria. This continues to bother her greatly. Tylenol was not helpful. We'll dose of [place] has been added an attempt to try to improve her significant discomfort. Antibiotic therapy with ceftriaxone is being utilized lower awaiting the final urine culture. The family inquired about peridium and we discussed that with her poor renal function this is not an option at this time. Hopefully with fluids, dialysis and some improved pain medications she will have some improvement of her status. Lactulose has been requested daily to help with her constipation. The urine culture is in process and will further help direct antibiotic therapy, blood cultures negative so far. 02/06/2018 patient remains miserable having significant pain with her back and pain medications have been ordered by her primary team will have a better night. Is again having significant burning to the tissue around the vaginal area and perineum, the botanical zinc cause some burning possibly from the many agencies been added to the zinc. Plain zinc oxide has been ordered and should be tried. Unclear if she would benefit from the female urinary catheter, that is not the Berkowitz. No evidence of infection at this time but likely has some secondary yeast infection and some fluconazole is added. 02/07/2018 patient does have an outpatient culture with MSSA in her urine. She is ready for discharge to home a prescription for cefuroxime 500 mg in the [facility] pharmacy for 7 day supply. Completed course of fluconazole and continue to use the topical plain zinc oxide which is giving her some significant relief to her misery. Status: Acute Code(s): N39.0 - URINARY TRACT INFECTION, SITE NOT SPECIFIED SNOMED Code(s): 22835373 (3) Dysuria Status: Acute Code(s): R30.0 - DYSURIA SNOMED Code(s): 33669570
== END 2018-02-07 17:55 | disposition home health service (06) | DRG 683 ==
LOC: EC 19:20 → 4MS4W 20:05
PROVIDERS: ADMIT Hospitalist; ATTEND Hospitalist
PROC: 02HV33Z Insertion of Infusion Device into Superior Vena Cava, Percutaneous Approach (ICD-10-PCS; principal; 2018-02-02 09:55)
PROC: 5A1D70Z Performance of Urinary Filtration, Intermittent, Less than 6 Hours Per Day (ICD-10-PCS; 2018-02-03)
PROC: 5A1D70Z Performance of Urinary Filtration, Intermittent, Less than 6 Hours Per Day (ICD-10-PCS; 2018-02-04)
PROC: 5A1D70Z Performance of Urinary Filtration, Intermittent, Less than 6 Hours Per Day (ICD-10-PCS; 2018-02-06)
DX: N17.9 Acute kidney failure, unspecified (principal); N39.0 Urinary tract infection, site not specified; E87.2 Acidosis; I13.2 Hypertensive heart and chronic kidney disease with heart failure and with stage 5 chronic kidney disease, or end stage renal disease; T82.868A Thrombosis due to vascular prosthetic devices, implants and grafts, initial encounter; N18.6 End stage renal disease; E11.21 Type 2 diabetes mellitus with diabetic nephropathy; E83.39 Other disorders of phosphorus metabolism; E88.09 Other disorders of plasma-protein metabolism, not elsewhere classified; E11.22 Type 2 diabetes mellitus with diabetic chronic kidney disease; I50.9 Heart failure, unspecified; J44.9 Chronic obstructive pulmonary disease, unspecified; E83.9 Disorder of mineral metabolism, unspecified; D63.1 Anemia in chronic kidney disease; B37.9 Candidiasis, unspecified; E61.1 Iron deficiency; K43.9 Ventral hernia without obstruction or gangrene; G89.29 Other chronic pain; M54.9 Dorsalgia, unspecified; K59.00 Constipation, unspecified; F41.9 Anxiety disorder, unspecified; E78.5 Hyperlipidemia, unspecified; I25.10 Atherosclerotic heart disease of native coronary artery without angina pectoris; M19.042 Primary osteoarthritis, left hand; M19.041 Primary osteoarthritis, right hand; M17.0 Bilateral primary osteoarthritis of knee; N90.5 Atrophy of vulva; R32 Unspecified urinary incontinence; H02.401 Unspecified ptosis of right eyelid; Z99.2 Dependence on renal dialysis; E66.9 Obesity, unspecified; Z68.38 Body mass index [BMI] 38.0-38.9, adult; Z71.3 Dietary counseling and surveillance; H91.90 Unspecified hearing loss, unspecified ear; Z79.82 Long term (current) use of aspirin; Z79.4 Long term (current) use of insulin; Z79.899 Other long term (current) drug therapy; Z90.49 Acquired absence of other specified parts of digestive tract; Z95.5 Presence of coronary angioplasty implant and graft; Z90.710 Acquired absence of both cervix and uterus; Z88.0 Allergy status to penicillin; Z88.2 Allergy status to sulfonamides; Z88.8 Allergy status to other drugs, medicaments and biological substances; Z82.3 Family history of stroke; Z82.49 Family history of ischemic heart disease and other diseases of the circulatory system; Z87.442 Personal history of urinary calculi; Z87.440 Personal history of urinary (tract) infections
CPT/HCPCS: 36558; 71045; 76770; 76937; 77001; 80048; 80053; 80074; 81001; 83036; 83540; 83550; 83735; 84100; 85025; 85610; 87040; 87086; 90935; 93005; 94760; 96374; 99285